=== PATIENT | female | born 1950 | race Caucasian/White ===

== ENCOUNTER 2019-07-29 06:12 | Day surgery (SDC) | payer MEDICARE, OTHER ==
[~2019-07-29] VITALS: Ht 165.1 cm; Wt 95.3 kg
[~2019-07-29 06:12] MED LIST: ACYC1CAP23 PO; CERT200K SC; DOXE25CA2 PO; DYA375C PO; ENAL5TAB PO; ESOM1CAP12 PO; FEXO-119 PO; FLUT250M2 INH; FURO20TA3 PO; HYDR-531 PO; LEUC10TA2 PO; LEVO175T31 PO; METO25TA93 PO; MORP15TA PO; MORP30TA PO; NAPR220T56 PO; SUCR1TAB PO; TIZA4TAB3 PO; TRIA55SP9; ZOLP10TA PO; [UNRECOGNIZED DRUG - CODE] PO
[2019-07-29] MEDS ORDERED: ceFAZolin 1GM/50ML 100 ML IV ONE (07:13)
[2019-07-29] MEDS ORDERED: LIDOCAINE W/ EPINEPHRINE 2% INJ 20ML VIAL ONE (07:27)
[2019-07-29] MEDS ORDERED: BUPIVACAINE W/ EPINEPH 0.25% INJ 50ML MDV ONE (07:27)
[2019-07-29] MEDS ORDERED: VANCOMYCIN HCL 1000 MG VL ONE (07:28)
[2019-07-29] MEDS ORDERED: MORPHINE SULF(PF) 0.5MG/ML 10ML VIAL ONE (07:29)
[2019-07-29] MEDS ORDERED: MEPERIDINE HCL (50 MG/ML) 1 ML VIAL ONE (07:36)
[2019-07-29] MEDS ORDERED: MIDAZOLAM HCL 1MG/1ML-2 ML VIAL ONE ×2 (07:36→07:53)
[2019-07-29] MEDS ORDERED: fentaNYL CITRATE 100 MCG/2 ML VL ONE (07:36)
[2019-07-29] MEDS ORDERED: DexAMETHasone SOD PHOS 10MG/1ML VIAL INJ ONE (07:39)
[2019-07-29] MEDS ORDERED: PROPOFOL 10 MG/ML 20 ML IV ONE (07:51)
[2019-07-29] MEDS ORDERED: ONDANSETRON HCL 4 MG/2 ML VIAL IV PRN (08:15)
[2019-07-29] MEDS ORDERED: MORPHINE SULFATE 4 MG/ML SYR/VIAL IV PRN (08:15)
[2019-07-29] MEDS ORDERED: ePHEDrine SULFATE 50 MG/ML AMP IV PRN (08:15)
[2019-07-29] MEDS ORDERED: ACCU-CHEK COMFORT CURVE STRIP VI ONE (08:15)
[2019-07-29] MEDS ORDERED: LABETALOL HCL 5 MG/ML 4ML SYRINGE IV PRN (08:15)
[2019-07-29] MEDS ORDERED: MIDAZOLAM HCL 1MG/1ML-2 ML VIAL IV PRN (08:15)
[2019-07-29] MEDS: HYDROmorphone HCL 2 MG/ML VL IV PRN ×2 (09:24→09:41)
[2019-07-29 10:06] VITALS: BP 127/55
== END 2019-07-29 10:19 | disposition home or self-care (01) ==
LOC: SUR 06:12
PROVIDERS: ATTEND Anesthesiology Pain Medicine
DX: M48.062 Spinal stenosis, lumbar region with neurogenic claudication (principal); I10 Essential (primary) hypertension; J44.9 Chronic obstructive pulmonary disease, unspecified; G47.33 Obstructive sleep apnea (adult) (pediatric); E03.9 Hypothyroidism, unspecified; E66.9 Obesity, unspecified; E11.9 Type 2 diabetes mellitus without complications; I25.10 Atherosclerotic heart disease of native coronary artery without angina pectoris; I25.2 Old myocardial infarction; Z79.01 Long term (current) use of anticoagulants; Z98.891 History of uterine scar from previous surgery; Z98.890 Other specified postprocedural states; Z79.82 Long term (current) use of aspirin; Z79.899 Other long term (current) drug therapy; Z68.35 Body mass index [BMI] 35.0-35.9, adult; Z87.891 Personal history of nicotine dependence
CPT/HCPCS: 22869; 22870; 72100; C1821; J0690; J1100; J1170; J2175; J2250; J2270; J2704; J3010; J3370; 76001

== ENCOUNTER 2020-01-01 13:55 | Emergency (ER) | payer MEDICARE, OTHER ==
[~2020-01-01] VITALS: Ht 165.1 cm; Wt 97.1 kg
[~2020-01-01 13:55] MED LIST changes: -ENAL5TAB PO; +ENAL5TAB10 PO
[2020-01-01 14:20] VITALS: BP 156/95
== END 2020-01-01 19:50 | disposition left against medical advice (07) ==
LOC: EDBD 13:55 → ER 13:55
DX: M79.602 Pain in left arm (principal); Z53.21 Procedure and treatment not carried out due to patient leaving prior to being seen by health care provider
CPT/HCPCS: 93005

== ENCOUNTER 2024-05-20 08:06 | Day surgery (SDC) | payer OTHER ==
[2024-05-19 15:28] LABS: Basophils # (auto) 0.1 10 ^3/uL (0-0.2); Basophils % (auto) 0.8 % (0.0-2.0); Eosinophils # (auto) 0.1 10 ^3/uL (0-0.8); Eosinophils % (auto) 1.8 % (0.0-7.0); Hematocrit 37.3 % (36.0-46.0); Hemoglobin 12.5 g/dL (12.2-16.2); Lymphocytes # (auto) 1.2 10 ^3/uL (0.4-5.4); Lymphocytes % (auto) 15.7 % (10.0-50.0); Mean Corpuscular Hgb Conc. 33.5 g/dL (32.0-36.0); Mean Corpuscular Volume 95.5 fL (80.0-100.0); Monocytes # (auto) 0.5 10 ^3/uL (0-1.3); Monocytes % (auto) 6.9 % (0.0-12.0); Neutrophils # (auto) 5.8 10 ^3/uL (1.6-8.6); Neutrophils % (auto) 74.8 % (37.0-80.0); Platelet Count (auto) 232 10^3/uL (140-450); Red Cell Distribution Width 16.2 % (11.8-14.3); White Blood Cell 7.8 10^3/uL (4.4-10.8)
[2024-05-19 15:44] LABS: INR 1.01 (0.9-1.15); Partial Thromboplastin Time 25.6 SEC (24.5-34.5); Prothrombin Time 10.7 sec (9.3-11.8)
[2024-05-19 16:06] LABS: Alanine Aminotransferase 12 U/L (7-40); Alkaline Phosphatase 95 U/L (46-116); Anion Gap 3 (5-15); Aspartate Aminotransferase 16 U/L (13-40); BUN/Creatinine Ratio 20.6 (10.0-20.0); Blood Urea Nitrogen 20 mg/dL (9-23); Calcium 10.7 mg/dL (8.7-10.4); Carbon Dioxide 36 mmol/L (20-31); Chloride 99 mmol/L (98-107); Glucose 121 mg/dL (74-106); Potassium 4.3 mmol/L (3.5-5.1); Sodium 138 mmol/L (136-145)
[2024-05-19 16:07] LABS: Albumin 4.1 g/dL (3.2-4.8); Bilirubin, Total 0.4 mg/dL (0.2-1.0); Total Protein 6.7 g/dL (5.7-8.2)
[~2024-05-20] VITALS: Ht 165.1 cm; Wt 94.3 kg
[~2024-05-20 08:06] MED LIST changes: -ACYC1CAP23 PO; +ACYC200C22 PO; +ALBUAER3 IN; -CERT200K SC; -DYA375C PO; -ENAL5TAB10 PO; +ENAL5TAB22 PO; +EPINEPHrine HCL 1 MG/10 ML SYRG ONE; -ESOM1CAP12 PO; +ESOM1CAP38 PO; +FLUT1AER17 IN; -FLUT250M2 INH; -LEVO175T31 PO; +LEVO175T4 PO; +LIDOCAINE 2% JELLY 11ml (GLYDO) ONE; +LIDOCAINE 2%HCL (LOCAL ANESTH.) INJ 20ML MDV ONE; +METH2.5T PO; -MORP30TA PO; -NAPR220T56 PO; +POTA-220 PO; +SODIUM CHLORIDE LOCK 10 ML ONE; -TIZA4TAB3 PO; -TRIA55SP9; -ZOLP10TA PO
[2024-05-20] MEDS: fentaNYL CITRATE 100 MCG/2 ML VL ONE (10:13)
[2024-05-20] MEDS: MIDAZOLAM HCL 5 MG/ML-1ML VIAL ONE (10:13)
[2024-05-20] MEDS: GLYCOPYRROLATE 0.2 MG/ML 1ML VIAL ONE (10:13)
[2024-05-20] MEDS: diphenhdrAMINE HCL 50 MG/1 ML VL ONE (10:13)
[2024-05-20] MEDS ORDERED: EPINEPHrine HCL 1 MG/1 ML AMP ONE (10:32)
[2024-05-20 11:00] VITALS: PULSE 115; RESP 26; TEMP 97.7; O2SAT 95
--- NOTE | 2024-05-20 11:09 | DVHNC2 ---
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 Glycopyrrolate 0.2 mg, Versed 5 mg, Fentanyl 100mcg, Benadryl 50 mg IVP. Complications: None Procedure: Patient medications and allergies reviewed. The risks and benefits of the procedure and the sedation options and risk were discussed with the patient. All questions were answered and informed consent was obtained. Patient iden tification and proposed procedure were verified prior to the procedure by the physician, and a nurse, and the respiratory therapist in endoscopy room. The heart rate, respiratory rate, oxygen saturations, blood pressure, adequacy of pulmonary ventilation, and response to care were monitored throughout the procedure. The physical status of the patient was reassessed after the proc edure. After obtaining informed consent, the bronchoscope was introduced through the endotracheal tube and advanced into the trachea bronchial tree of both lungs. The procedure was accomplished without difficulty. The patient tolerated the procedure well. Findings: The trachea is in normal caliber. The levy is sharp. The tracheobronchial tree of the right lung was examined to at least the first subsegmental level. The bronchial mucosa and anatomy in the right lung are normal, except in right middle lobe bronchus. There was abnormal mucosa with severe narrowing of the right middle lobe bronchus. There are no endobronchial lesions. There was no secretions from right main stem bronchus onward throughout R1-R10. Right middle lobe (RML) Bronchoalveolar lavage (BAL) obtained. RML BAL sent for gram stain and culture, viral culture, and fungal culture. Post biopsy, brushings and BAL, there was mucosal hemorrhage that resolved with 30 mL of cold saline. The left upper lobe, lingula, and left lower lobe were examined to at least the first subsegmental level. Bronchial mucosa and anatomy in the left upper lobe a nd lingula are normal. There were no endobronchial lesions. There was no secretions from left main stem bronchus onward throughout L1-L10. There was no active bleeding at the completion of the procedure. Estimated blood loss: Less than 5 mL. Impression: Right middle lobe mass like consoldation/atelectasis due to extrinsic compressio n Right Middle Lobe bronchoalveolar lavage performed Right middle lobe brushings Right middle lobe (RML) biopsy at bifurcation of RML bronchus Recommendation: Follow-up RML BAL, brushings, and biopsy results. Procedure codes: 59555, bronchoscopy, rigid and flexible, including fluoroscopic guidance, one performed; with bronchial endobronchial biopsy, single or multiple sites SHARIF LUND MD May 20, 2024 11:09
--- NOTE | 2024-05-20 11:12 | DVHNC2 ---
Procedure - I administered moderate sedation throughout the 28 minutes of the procedure. An independent observer administered medications at my direction and monitored the patient's level of consciousness and physiological status throughout the procedure. CPT 93697 for the first 15 minutes. CPT 59153 for each additional 15 minutes of conscious sedation. CONSCIOUS SEDATION PROCEDURE NOTE: Procedural Sedation Performed by: Dr Covington Indications: Bronchoscopy with biopsy due to Right middle lobe (RML) mass like consolidation. [place] Protocol: a time out was performed and the correct patient and site were verified Consent: The risks and benefits of monitored anesthesia care, including the risk of aspiration, deep sedation requiring airway management including possible intubation, nausea/vomiting and the risks of not performing the procedure, including severe pain and inability to complete the procedure, were all discussed with the patient. The alternatives of performing the procedure, including local anesthesia and IV analgesia, also discussed. The patient has a ride home available. ASA Class: II-mild systemic disease Mallampati Score: 3 Pre-anesthesia evaluation, including history, exam, and informed consent is documented in the note above. Monitoring: Continuous monitoring of heart rate, respiratory rate, pulse oximetry and ETCO2. Supplemental oxygen prior to and during procedure via nasal cannula. Resuscitation equipment available at the bedside during sedation. Intra-service start time: 10:13 am Intra-service stop time: 10:41 am The patient received Fentanyl 100 mcg, Versed 5 mg, Glycopyrrolate 0.2 mg IVP, and Benadryl 50mg IVP and dosages were recorded on the sedation form. The patient was recovered from the sedation without complication or incident. Patient returned to pre-sedation level of awareness. The monitoring was discontinued at this time. Post-anesthesia evaluation: Respiratory function, cardiovascular function, temperature, and mental status did return to pre-anesthetic state. Pain was controlled. The patient did tolerate p.o. SHARIF COVINGTON MD May 20, 2024 11:12
[2024-05-20 12:21] VITALS: PULSE 99; RESP 26; O2SAT 100
[2024-05-20] MEDS: ALBUTEROL SULF 2.5 MG/0.5ML(0.5%) NEB SOLN NEB ONE (12:21)
[2024-05-20] MEDS: ALBUTEROL SULF 2.5 MG/0.5ML(0.5%) NEB SOLN ONE (12:25)
--- NOTE | 2024-05-20 12:25 | DVH ---
CHEST RADIOGRAPH Indication: POST BRONCHOSCOPY Technique: Single frontal view of the chest was obtained COMPARISON: None FINDINGS: Lines and Tubes: None Lungs: Multifocal airspace disease. Low lung volumes. Pleura: No effusion. No pneumothorax. Cardiomediastinal contours: Cardiomegaly. Bones: Unremarkable IMPRESSION: Multifocal airspace disease. Low lung volumes. Cardiomegaly.
[2024-05-20 12:27] VITALS: PULSE 86; RESP 24; O2SAT 100
[2024-05-20] MEDS ORDERED: ACETAMINOPHEN IV 100 ML IV ONE (12:40)
[2024-05-20] MEDS: ACETAMINOPHEN IV 1000 MG/100ML (10MG/ML) IV ONE (12:44)
[2024-05-20] MEDS: FAMOTIDINE 20 MG TAB PO ONE (12:44)
[2024-05-20] MEDS: diphenhdrAMINE HCL 25 MG CAP PO ONE (12:44)
[2024-05-20] MEDS: guaiFENesin-DM 100/10mg/5ml SYR PO ONE (13:02)
[2024-05-20 13:20] VITALS: BP 123/88; PULSE 99; RESP 16; O2SAT 97
== END 2024-05-20 13:38 | disposition home or self-care (01) ==
LOC: SUR 08:06
PROVIDERS: ATTEND Internal Medicine Pulmonary Disease
DX: J98.11 Atelectasis (principal); J96.11 Chronic respiratory failure with hypoxia; J44.9 Chronic obstructive pulmonary disease, unspecified; K21.9 Gastro-esophageal reflux disease without esophagitis; J98.09 Other diseases of bronchus, not elsewhere classified; I13.0 Hypertensive heart and chronic kidney disease with heart failure and stage 1 through stage 4 chronic kidney disease, or unspecified chronic kidney disease; N18.2 Chronic kidney disease, stage 2 (mild); I50.9 Heart failure, unspecified; M19.90 Unspecified osteoarthritis, unspecified site; E03.9 Hypothyroidism, unspecified; Z79.890 Hormone replacement therapy; Z79.899 Other long term (current) drug therapy; Z87.891 Personal history of nicotine dependence; Z90.49 Acquired absence of other specified parts of digestive tract; Z98.890 Other specified postprocedural states
CPT/HCPCS: 31625; 36415; 71045; 80053; 85025; 85610; 85730; 87070; 87205; 88104; 88305; J0171; J1200; J2250; J3010; 99152; 99153; J0131

== ENCOUNTER 2024-05-22 16:52 | Inpatient (IN) | payer OTHER ==
[~2024-05-22] VITALS: Ht 154.9 cm; Wt 93.8 kg
[~2024-05-22 16:52] MED LIST changes: -EPINEPHrine HCL 1 MG/10 ML SYRG ONE; -LIDOCAINE 2% JELLY 11ml (GLYDO) ONE; -LIDOCAINE 2%HCL (LOCAL ANESTH.) INJ 20ML MDV ONE; -SODIUM CHLORIDE LOCK 10 ML ONE
[2024-05-22 17:41] LABS: Urine Bacteria None Seen /hpf (None Seen)
--- NOTE | 2024-05-22 17:51 | ED.PDOC ---
HPI Comments 74y F who presents to the ED for chief complaint of chest pain. Pt states she has been having palpitations since last night PM. Pt states she has history of CHF and COPD and states she took her breathing treatment last night and states she was checking her vitals and states her heart was elevated. Pt states earlier this AM, she continued to have palpitations this AM with heart rate in the 150's and came to the ED for further evaluation. Pt in the ED, has noted heart rate of 171 with BP of 156/90 in the ED. Pt otherwise denies any other symptoms at this time. Chief Complaint: Palpitations Time Seen by MD: 17:45 Primary Care Provider: TYLER Reviewed Notes: Medications, Allergies Allergies: Coded Allergies: NO KNOWN ALLERGIES (Unverified , 07/27/19) Home Meds Reported Medications Bfjfxenhuzj-Sasyrpamjlrf-Ssffk (Trelegy Ellipta 200-62.5-25 Mcg/INH) 1 Aer Aer, 1 AER IN, AER 05/19/24 Potassium Chloride (Klor-Con M20) 20 Meq Tab, 20 MEQ PO BID, TAB 05/19/24 Albuterol Sulfate (VENTOLIN MDI) 90 Mcg Ih, 90 MCG IN PRN, INH 05/19/24 Methotrexate (Methotrexate) 2.5 Mg Tab, 4 TAB PO QWEEKLY, TAB 05/19/24 Metoprolol Succinate (Metoprolol Succinate Er) 25 Mg Tab, 25 MG PO DAILY for 30 Days, MG 07/27/19 Hydrocodone-Acetaminophen ([place] 10-325 mg) 1 Tab Tab, 1 TAB PO Q8HPRN PRN for PAIN SCALE 7 THRU 10, TAB 04/12/19 Morphine Sulfate (Morphine Sulfate) 15 Mg Tab, 15 MG PO BID, TAB 04/12/19 Doxepin Hcl (Doxepin Hcl) 25 Mg Cap, 100 MG PO HS, CAP 04/12/19 Enalapril Maleate (Enalapril Maleate) 5 Mg Tab, 5 MG PO BID, TAB 04/12/19 Leucovorin Calcium (Leucovorin Calcium) 10 Mg Tab, 10 MG PO QWEEKLY, TAB 04/12/19 Levothyroxine Sodium (Levothyroxine Sodium) 175 Mcg Tab, 175 MCG PO DAILY, TAB 04/12/19 Esomeprazole Magnesium (Esomeprazole Magnesium) 40 Mg Cap, 40 MG PO DAILY, CAP 04/12/19 Furosemide (Furosemide) 20 Mg Tab, 1-2 TAB PO DAILYPRN for SWELLING, TAB 04/12/19 Fexofenadine HCl (Allergy Relief 24Hr) 180 Mg Tab, 180 MG PO DAILY, TAB 04/12/19 Sucralfate (Sucralfate) 1 Gm Tab, 1 GM PO QID, GM 04/12/19 Theophylline (Theophylline Sr) 300 Mg Tab, 300 MG PO BID, TAB 04/12/19 Acyclovir (Acyclovir) 200 Mg Cap, 400 MG PO BID, TAB 04/12/19 Discontinued Reported Medications Triamcinolone Acetonide (Nasal (Nasal Allergy 24 Hour Mul) 55 Mcg/Act Spr, 55 MCG NA DAILY, SPR 04/12/19 Zolpidem Tartrate (Ambien) 10 Mg Tab, 10 MG PO HS, TAB 04/12/19 Hydrochlorothiazide W/Triamter (Dyazide 37.5/25MG) 1 Cap Cp, 1 CAP PO DAILY, #90 CAP 3 Refills 04/12/19 Tizanidine Hydrochloride (Tizanidine Hcl) 4 Mg Tab, 4 MG PO HS, TAB 04/12/19 Information Source: Patient Mode of Arrival: Wheelchair Brought in by: self Past Medical History PAST MEDICAL HISTORY: CHF Surgical History: Unknown 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 Family History Family History: Unknown Social History Smoker: Non-Smoker Alcohol: Denies ETOH Use Drugs: Denies Drug Use Lives In: Home Constitutional: denies: chills, diaphoresis, fatigue, fever, malaise, sweats, weakness, others EENTM: denies: blurred vision, double vision, ear bleeding, ear discharge, ear drainage, ear pain, ear ringing, eye pain, eye redness, hearing loss, mouth pain, mouth swelling, nasal discharge, nose bleeding, nose congestion, nose pain, photophobia, tearing, throat pain, throat swelling, voice changes, others Respiratory: denies: cough, hemoptysis, orthopnea, SOB at rest, shortness of breath, SOB with excertion, stridor, wheezing, others Cardiovascular: reports: chest pain, palpitations; denies: dizzy spells, di aphoresis, Dyspnea on exertion, edema, irregular heart beat, left arm pain, lightheadedness, PND, syncope, others Gastrointestinal: denies: abdomen distended, abdominal pain, blood streaked bowels, constipated, diarrhea, dysphagia, difficulty swallowing, hematemesis, melena, nausea, poor appetite, poor fluid intake, rectal bleeding, rectal pain, vomiting, others Genitourinary: denies: abnormal vagina bleeding, burning, dyspareunia, dysuria, flank pain, frequency, hematuria, incontinence, pain, , vagina discharge, urgency, others Neurological: denies: dizziness, fainting, headache, left sided numbness, left sided weakness, numbness, paresthesia, pre-existing deficit, right sided numbnes s, right sided weakness, seizure, speech problems, tingling, tremors, weakness, others Musculoskeletal: denies: back pain, gout, joint pain, joint swelling, muscle pain, muscle stiffness, neck pain, others Integumetry: denies: bruises, change in color, change in hair/nails, dryness, laceration, lesions, lumps, rash, wounds, others Allergic/Immunocompromised: denies: Difficulty Healing, Frequent Infections, Hives, Itching, others Hematologic/Lymphatic: denies: anemia, blood clots, easy bleeding, easy bruising, swollen glands, others Endocrine: denies: excessive hunger, excessive sweating, excessive thirst, excessive urination, flushing, intolerance to cold, intolerance to heat, unexplained weight gain, unexplained weight loss, others Psychiatric: denies: anxiety, bipolar disorder, depression, hopeless, panic disorder, schizophrenia, sleepless, suicidal, others All Other Systems: Reviewed and Negative Physical Exam General Appearance: No Apparent Distress, Normal HEENT: Normal ENT Inspection, Pharynx Normal, TMs Normal Neck: Full Range of Motion, Non-Tender, Normal, Normal Inspection Respiratory: Chest Non-Tender, Lungs Clear, No Accessory Muscle Use, No Respiratory Distress, Normal Breath Sounds Cardiovascular: Tachycardia Breast Exam: Deferred Gastrointestinal: No Organomegaly, Non Tender, No Pulsatile Mass, Normal Bowel Sounds, Soft Genitalia: Deferred Pelvic: Deferred Rectal: Deferred Extremities: No calf tenderness, Normal capillary refill, Normal inspection, Normal range of motion, Non-tender, No pedal edema Musculoskeletal : Apperance: Normal Neurologic: Alert, supervisor slate splitting II-XII nml as Tested, No Motor Deficits, Normal Affect, Normal Mood, No Sensory Deficits Cerebellar Function: Normal Reflexes: Normal Skin: Dry, Normal Color, Warm Lymphatic: No Adenopathy Was a procedure done? Was a procedure done?: Yes Sedation Sedation?: Yes Informed consent obtained: Yes Sedation start time: 17:30 Sedation end time: 18:15 Sedation total time: 45 Cardioversion Vagal maneuver: Were not attempted Attempts: x1, Joules (120) Resulted Rhythm: NSR Direct Supervision: Yes Informed consent obtained: Yes Risks/benefits/alt described: Yes CP Differential Dx Differential Diagnosis: A-fib, A-Flutter, Angina, Anxiety / Panic Attack, Atrial Dysrhythmia, Electrolyte Disorder, Heart Failure, PSVT, PVC's, Vent ricular Dysrhythmia Differential Diagnosis: HTN Essential, HTN Accelerated X-Ray, Labs, Meds, VS Vital Signs Date Time Temp Pulse Resp B/P (MAP) Pulse Ox O2 Delivery O2 Flow Rate FiO2 05/22/24 20:00 123 33 124/79 (94) 91 05/22/24 19:45 120 42 126/85 (99) 91 05/22/24 19:30 110 32 108/62 (77) 91 05/22/24 19:15 167 32 98/55 (69) 99 05/22/24 19:00 167 32 93/59 (70) 99 05/22/24 19:00 124/79 05/22/24 19:00 124/79 05/22/24 18:45 168 32 129/67 (87) 99 05/22/24 18:37 169 125/51 05/22/24 18:30 165 32 128/60 (82) 99 05/22/24 18:15 165 32 128/66 (86) 99 05/22/24 18:00 168 23 97 Nasal Cannula* 2 28 05/22/24 18:00 99.6 165 22 125/51 (75) 98 99.6 05/22/24 17:47 168 05/22/24 17:25 171 32 156/90 (112) 92 05/22/24 17:04 98.4 172 37 159/60 (93) 92 05/22/24 16:58 175 Lab Test 05/22/24 20:20 05/22/24 17:24 05/22/24 17:21 Range/Units Troponin I High Sensitivity 62 *H 75 *H </=34 ng/L White Blood Count 11.5 #H 4.4-10.8 10^3/uL Red Blood Count 4.03 4.0-5.20 10^6/uL Hemoglobin 12.8 12.2-16.2 g/dL Hematocrit 38.6 36.0-46.0 % Mean Corpuscular Volume 95.8 80.0-100.0 fL Mean Corpuscular Hemoglobin 31.8 28.0-32.0 pg Mean Corpuscular Hemoglobin Concent 33.2 32.0-36.0 g/dL Red Cell Distribution Width 16.4 H 11.8-14.3 % Platelet Count 287 140-450 10^3/uL Mean Platelet Volume 9.6 6.9-10.8 fL Neutrophils (%) (Auto) 80.3 H 37.0-80.0 % Lymphocytes (%) (Auto) 9.7 L 10.0-50.0 % Monocytes (%) (Auto) 8.8 0.0-12.0 % Eosinophils (%) (Auto) 0.3 0.0-7.0 % Basophils (%) (Auto) 0.9 0.0-2.0 % Neutrophils # (Auto) 9.2 H 1.6-8.6 10 ^3/uL Lymphocytes # (Auto) 1.1 0.4-5.4 10 ^3/uL Monocytes # (Auto) 1.0 0-1.3 10 ^3/uL Eosinophils # (Auto) 0 0-0.8 10 ^3/uL Basophils # (Auto) 0.1 0-0.2 10 ^3/uL Nucleated Red Blood Cells 0.0 % Sodium Level 135 L 136-145 mmol/L Potassium Level 3.7 3.5-5.1 mmol/L Chloride Level 100 98-107 mmol/L Carbon Dioxide Level 25 20-31 mmol/L Anion Gap 10 5-15 Blood Urea Nitrogen 15 9-23 mg/dL Creatinine 0.84 0.550-1.02 mg/dL Glomerular Filtration Rate Calc 73 >90 mL/min BUN/Creatinine Ratio 17.9 10.0-20.0 Serum Glucose 118 H 74-106 mg/dL Calcium Level 10.9 H 8.7-10.4 mg/dL Magnesium Level 1.9 1.6-2.6 mg/dL Total Bilirubin 0.5 0.2-1.0 mg/dL Aspartate Amino Transferase (AST) 22 13-40 U/L Alanine Aminotransferase (ALT) 14 7-40 U/L Alkaline Phosphatase 99 46-116 U/L Total Protein 7.1 5.7-8.2 g/dL Albumin 4.3 3.2-4.8 g/dL Urine Color Colorless Yellow Urine Clarity Clear Clear Urine pH 5.5 5.0-9.0 Urine Specific [place] 1.007 1.001-1.035 Urine Protein Negative Negative Urine Ketones Negative Negative Urine Blood Negative Negative /uL Urine Nitrite Negative Negative Urine Bilirubin Negative Negative Urine Urobilinogen Normal Negative mg/dL Urine Leukocyte Esterase 1+ Negative /uL Urine RBC <1 0 - 4 /hpf Urine WBC 6 0 - 5 /hpf Urine Squamous Epithelial Cells Few <5 /hpf Urine Bacteria None seen None Seen /hpf Urine Glucose Normal Normal mg/dL Current Medications Medications (Trade) Dose Ordered Sig/Vashti Route Start Time Stop Time Status Last Admin Metoprolol Tartrate (Lopressor) 5 mg ONCE ONCE IV 05/22/24 18:45 05/22/24 18:46 DC 05/22/24 18:37 Ondansetron HCl (Zofran) 4 mg ONCE ONCE IV 05/22/24 18:45 05/22/24 18:46 DC 05/22/24 18:38 Furosemide (Lasix Injection) 40 mg ONCE ONCE IV 05/22/24 19:00 05/22/24 19:11 DC 05/22/24 19:00 Adenosine (Adenosine) 6 mg ONCE ONCE IV 05/22/24 19:30 05/22/24 19:31 DC 05/22/24 18:56 Adenosine (Adenosine) 12 mg ONCE ONCE IV 05/22/24 19:30 05/22/24 19:31 DC 05/22/24 18:58 Ketamine HCl (Ketalar) 200 mg ONCE ONCE IV 05/22/24 19:30 05/22/24 19:31 DC 05/22/24 19:[address] [address] Ph: [phone] DIAGNOSTIC IMAGING Diagnostic Imaging Report : [id number] Signed PATIENT: BEN ASHBY ACCT: [id number] UNIT: [id number] : 1950 LOC: ER ROOM / BED: / AGE / SEX: 74 / F ADM STATUS: REG ER SERVICE 06 ORDERING PHYSICIAN: MARCELA CAPELLAN MD PROCEDURE(s): CXRP - CHEST PORTABLE REASON: palpitations ORDER NUMBER(s): [id number], ACCESSION NUMBER(s): [id number] CHEST RADIOGRAPH Indication: palpitations Technique: Single frontal view of the chest was obtained COMPARISON: XY CHEST XRAY 1 VIEW on DOS: 05/20/24 FINDINGS: Lines and Tubes: None Lungs: Mild interstitial pulmonary edema Pleura: Trace bilateral pleural effusions. No pneumothorax. Cardiomediastinal contours: Cardiomegaly Bones: Unremarkable IMPRESSION: 1. Mild interstitial pulmonary edema in the setting of cardiomegaly. 2. Trace bilateral pleural effusions. ATED BY: KWAME SCHUMACHER MD DICTATED DATE/TIME: 05/22/241751 SIGNED BY: KWAME SCHUMACHER MD SIGNED DATE/TIME: 05/22/241751 CC: Time of 1ST Reevaluation: 18:15 Reevaluation 1ST: Unchanged Patient Education/Counseling: Diagnosis, Treatment Family Education/Counseling: No Family Present Departure 1 Departure Time of Disposition: 20:59 (Patient presented with chest pain that was concerning for possible STEMI, ACS, PE, Pneumonia, Muscle Strain, COPD, Dissection. Data: 1. I ordered and reviewed the result of at least 3 labs including a CBC, BMP, and Troponin. 2. I independently interpreted the following tests: EKG which shows SVT and Chest X-ray which shows vascular congestion .Risk:This patient has a high risk of morbidity due to further diagnostic testing or treatment and may suffer from an acute cardiac or respiratory disorder. Workup reveals CHF exacerbation and patient should be admitted for further workup and possible expert consultation. ) Impression: Primary Impression: Acute on chronic heart failure with reduced ejection fraction (HFrEF, <= 40%) and combined systolic and diastolic dysfunction Additional Impression: SVT (supraventricular tachycardia) Disposition: ADMITTED INPATIENT Admit to: Med Surg Condition: Serious Critical Care Note Critical Care Time?: Yes Critical care comment: SVT Authorized and Performed by: Marcela Capellan MD Total critical care time: Approximately 38 minutes Due to a high probability of clinically significant, life threatening deterioration, the patient required my highest level of preparedness to intervene emergently and I personally spent this critical care time directly and personally managing the patient. This critical care time included obtaining a history; examining the patient; pulse oximetry; ordering and review of studies; arranging urgent treatment with development of a management plan; evaluation of patient's response to treatment; frequent reassessment; and, discussions with other providers. This critical care time was performed to assess and manage the high probability of imminent, life-threatening deterioration that could result in multi-organ failure. It was exclusive of separately billable procedures and treating other patients and teaching time. Please see my other sections and the rest of the note for further information on patient assessment and treatment. Stability Stability form required: No Heart Score Heart Score: Heart Score Response (Comments) Value History Moderate Suspicious 1 EKG N/A 0 Age >65 2 Risk Factors 1 or 2 risk factors 1 Troponin N/A 0 Total 4 I personally scribed for MARCELA CAPELLAN MD ([email or web address]) on 05/22/24 at 17:51. Electronically submitted by Geovani Tan ([facility]). I personally scribed for MARCELA CAPELLAN MD ([email or web address]) on 05/22/24 at 18:38. Electronically submitted by Geovani Tan ([facility]). MARCELA CAPELLAN MD May 22, 2024 17:51
--- NOTE | 2024-05-22 17:54 | DVH ---
CHEST RADIOGRAPH Indication: palpitations Technique: Single frontal view of the chest was obtained COMPARISON: XY CHEST XRAY 1 VIEW on DOS: 05/20/24 FINDINGS: Lines and Tubes: None Lungs: Mild interstitial pulmonary edema Pleura: Trace bilateral pleural effusions. No pneumothorax. Cardiomediastinal contours: Cardiomegaly Bones: Unremarkable IMPRESSION: 1. Mild interstitial pulmonary edema in the setting of cardiomegaly. 2. Trace bilateral pleural effusions.
[2024-05-22 17:57] LABS: Alanine Aminotransferase 14 U/L (7-40); Albumin 4.3 g/dL (3.2-4.8); Alkaline Phosphatase 99 U/L (46-116); Anion Gap 10 (5-15); Aspartate Aminotransferase 22 U/L (13-40); BUN/Creatinine Ratio 17.9 (10.0-20.0); Blood Urea Nitrogen 15 mg/dL (9-23); Calcium 10.9 mg/dL (8.7-10.4); Carbon Dioxide 25 mmol/L (20-31); Chloride 100 mmol/L (98-107); Glucose 118 mg/dL (74-106); Magnesium 1.9 mg/dL (1.6-2.6); Potassium 3.7 mmol/L (3.5-5.1); Sodium 135 mmol/L (136-145)
[2024-05-22 17:58] LABS: Bilirubin, Total 0.5 mg/dL (0.2-1.0); Total Protein 7.1 g/dL (5.7-8.2)
[2024-05-22 18:00] VITALS: PULSE 168; RESP 23; O2SAT 97
[2024-05-22 18:06] LABS: Urine Blood Negative /uL (Negative); Urine Clarity Clear (Clear); Urine Color Colorless (Yellow); Urine Protein, UAD Negative (Negative); Urine Specific Gravity 1.007 (1.001-1.035); Urine Urobilinogen Normal (Negative); Urine WBC 6 /hpf (0 - 5); Urine pH 5.5 (5.0-9.0)
[2024-05-22 18:09] LABS: Basophils # (auto) 0.1 10 ^3/uL (0-0.2); Basophils % (auto) 0.9 % (0.0-2.0); Eosinophils # (auto) 0 10 ^3/uL (0-0.8); Eosinophils % (auto) 0.3 % (0.0-7.0); Hematocrit 38.6 % (36.0-46.0); Hemoglobin 12.8 g/dL (12.2-16.2); Lymphocytes # (auto) 1.1 10 ^3/uL (0.4-5.4); Lymphocytes % (auto) 9.7 % (10.0-50.0); Mean Corpuscular Hemoglobin 31.8 pg (28.0-32.0); Mean Corpuscular Hgb Conc. 33.2 g/dL (32.0-36.0); Mean Corpuscular Volume 95.8 fL (80.0-100.0); Monocytes % (auto) 8.8 % (0.0-12.0); Neutrophils # (auto) 9.2 10 ^3/uL (1.6-8.6); Neutrophils % (auto) 80.3 % (37.0-80.0); Platelet Count (auto) 287 10^3/uL (140-450); Red Blood Cells 4.03 10^6/uL (4.0-5.20); Red Cell Distribution Width 16.4 % (11.8-14.3); White Blood Cell 11.5 10^3/uL (4.4-10.8)
[2024-05-22] MEDS: METOPROLOL TARTRATE 1MG/1ML-5ML VIAL IV ONE ×2 (18:37→18:38)
[2024-05-22] MEDS: ONDANSETRON HCL 4 MG/2 ML VIAL IV ONE (18:38)
--- NOTE | 2024-05-22 18:41 | ECG ---
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
[2024-05-22] MEDS: ADENOSINE 6 MG/2 ML INJ IV ONE ×4 (18:56→19:21)
[2024-05-22] MEDS: FUROSEMIDE 40 MG/4 ML VIAL ONE (19:00)
[2024-05-22] MEDS: FUROSEMIDE 40 MG/4 ML VIAL IV ONE (19:00)
[2024-05-22] MEDS: KETAMINE 50mg/ML 10ml Vial (500mg/10ml) IV ONE (19:09)
[2024-05-22] MEDS: KETAMINE 50mg/ML 10ml Vial 10 ML ONE (19:21)
[2024-05-22] MEDS: AMIODARONE BOLUS KIT 100 ML IV ONE (20:15)
[2024-05-22] MEDS: AMIODARONE 450mg/250ml AE 250 ML IV SCH ×2 (20:30→21:03)
[2024-05-22] MEDS ORDERED: ACETAMINOPHEN 325 MG TAB PO PRN (22:15)
[2024-05-22] MEDS: ASPirin 81 mg TAB PO ONE (23:15)
[2024-05-22] MEDS: cefTRIAXone 1GM/50ML D5W 50 ML IV ONE (23:15)
--- NOTE | 2024-05-22 23:40 | DVHHP2 ---
History of Present Illness Reason for Visit: Palpitations History of Present Illness The patient is a 74-year-old female with past medical history of CHF, thyroid disease, and hypertension who presented to [facility] ED with complaint of chest pain. Patient reports symptoms progressively get worse with palpitations, difficulty breathing, getting worse that prompted this visit. Patient was seen and evaluated in the ED, laboratory data shows WBC 11.5, platelets 287, sodium 135, potassium 3.7, BUN 15, creatinine 0.84, glucose 118, troponin 75, calcium 10.9, BNP 423.72, blood pressure 131/78, heart rate 175 trending down to 104, temperature 99.6 F, O2 saturation 99% on oxygen. Chest x- ray revealing mild interstitial pulmonary edema trace bilateral pleural effusions. Patient was started on adenosine drip, given IV Lasix, please see medication orders section in the computer. On my assessment, patient denied chest pain, no headache, no dizziness, no diaphoresis, no palpitations at this moment, currently on oxygen, no nausea, no vomiting, no fever, no chills. Olga Lidia ent was admitted for further evaluation and medical management. Past Medical History CHF, HTN, thyroid disease. Past Surgical History Denies all surgeries Family History Reviewed, noncontributory to the management of this case. Past Social History The patient lives at home, denies smoking, alcohol or illicit drugs abuse. Review of Systems Constitutional: Yes: Weakness; No: Fever, Chills, Sweats, Malaise, Other Eyes: No: Pain, Vision change, Conjunctivae inflammation, Eyelid inflammation, Other, Redness ENT: No: Ear pain, Ear discharge, Nose pain, Nose discharge, Nose congestion, Mouth pain, Mouth swelling, Throat pain, Throat swelling, Other Respiratory: No: Cough, Dry, Shortness of breath, SOB with excertion, Wheezing, Hemoptysis, Pleuritic Pain, Sputum, Wheezing, Other Cardiovascular: Palpitations; No: Chest Pain, Orthopnea, Paroxysmal Noc. Dyspnea, Edema, Lt Headedness, Other Gastrointestinal: No: Nausea, Vomiting, Abdominal Pain, Diarrhea, Constipation, Melena, Hematochezia, Other Genitourinary: No Dysuria, No Frequency, No Incontinence, No Hematuria, No Retention, No Other Musculoskeletal: No: other, neck pain, shoulder pain, arm pain, back pain, hand pain, leg pain, foot pain Skin: No: Rash, Lesions, Jaundice, Bruising, Other Neurological: No: Weakness, Numbness, Incoordination, Change in speech, Confusion, Seizures, Other Allergies: Coded Allergies: NO KNOWN ALLERGIES (Unverified , 07/27/19) Medications Current Medications Medications Dose Ordered Sig/Vashti Route Start Time Stop Time Status Last Admin Dose Admin Amiodarone HCl 250 ml @ 33.333 mls/ hr Q7H30M IV 05/22/24 20:30 05/23/24 02:29 Amiodarone HCl 250 ml @ 16.667 mls/ hr Q15H IV 05/23/24 02:30 Aspirin 81 mg DAILY PO 05/23/24 10:00 Famotidine 20 mg DAILY IV 05/23/24 10:00 Furosemide 20 mg DAILY IV 05/23/24 10:00 Metoprolol Tartrate 25 mg BID PO 05/23/24 10:00 Levothyroxine Sodium 150 mcg QAM@0600 PO 05/23/24 06:00 Ceftriaxone Sodium 50 ml @ 100 mls/hr DAILY@09 IV 05/23/24 09:00 Sodium Chloride 10 ml Q8HR IV 05/23/24 06:00 Acetaminophen/ Hydrocodone Bitart 1 tab Q4HP PRN PO 05/22/24 22:15 Ondansetron HCl 4 mg Q4HP PRN IV 05/22/24 22:15 Docusate Sodium 100 mg BIDPRN PRN PO 05/22/24 22:15 Acetaminophen 650 mg Q6HP PRN PO 05/22/24 22:15 Exam Vital Signs Vital Signs Date Time Temp Pulse Resp B/P (MAP) Pulse Ox O2 Delivery O2 Flow Rate FiO2 05/22/24 21:05 118 26 112/56 (74) 100 05/22/24 18:00 Nasal Cannula* 2 28 05/22/24 18:00 99.6 99.6 General Appearance: Alert, Oriented X3, Cooperative, No acute distress HEENT: Atraumatic, PERRLA, EOMI, Mucous membr. moist/pink Respiratory: Clear to auscultation, Normal air movement Cardiovascular: Regular rate, Normal S1, Normal S2, No murmurs Abdominal: Normal bowel sounds, Soft, No tenderness, No hepatospenomegaly, No masses Extremities: No clubbing, No cyanosis, No edema, Normal pulses, No tenderness/swelling Skin: No rashes, No breakdown, No significant lesion Neuro: Normal speech, Normal tone, Sensation intact, Cranial nerves 3-12 NL, Reflexes 2+, Other (Generalized weakness) Psych/Mental Status: Mental status NL, Mood NL Labs/Xrays Labs Test 05/22/24 22:24 05/22/24 17:24 05/22/24 17:21 Range/Units Troponin I High Sensitivity 72 *H </=34 ng/L White Blood Count 11.5 #H 4.4-10.8 10^3/uL Red Blood Count 4.03 4.0-5.20 10^6/uL Hemoglobin 12.8 12.2-16.2 g/dL Hematocrit 38.6 36.0-46.0 % Mean Corpuscular Volume 95.8 80.0-100.0 fL Mean Corpuscular Hemoglobin 31.8 28.0-32.0 pg Mean Corpuscular Hemoglobin Concent 33.2 32.0-36.0 g/dL Red Cell Distribution Width 16.4 H 11.8-14.3 % Platelet Count 287 140-450 10^3/uL Mean Platelet Volume 9.6 6.9-10.8 fL Neutrophils (%) (Auto) 80.3 H 37.0-80.0 % Lymphocytes (%) (Auto) 9.7 L 10.0-50.0 % Monocytes (%) (Auto) 8.8 0.0-12.0 % Eosinophils (%) (Auto) 0.3 0.0-7.0 % Basophils (%) (Auto) 0.9 0.0-2.0 % Neutrophils # (Auto) 9.2 H 1.6-8.6 10 ^3/uL Lymphocytes # (Auto) 1.1 0.4-5.4 10 ^3/uL Monocytes # (Auto) 1.0 0-1.3 10 ^3/uL Eosinophils # (Auto) 0 0-0.8 10 ^3/uL Basophils # (Auto) 0.1 0-0.2 10 ^3/uL Nucleated Red Blood Cells 0.0 % Sodium Level 135 L 136-145 mmol/L Potassium Level 3.7 3.5-5.1 mmol/L Chloride Level 100 98-107 mmol/L Carbon Dioxide Level 25 20-31 mmol/L Anion Gap 10 5-15 Blood Urea Nitrogen 15 9-23 mg/dL Creatinine 0.84 0.550-1.02 mg/dL Glomerular Filtration Rate Calc 73 >90 mL/min BUN/Creatinine Ratio 17.9 10.0-20.0 Serum Glucose 118 H 74-106 mg/dL Calcium Level 10.9 H 8.7-10.4 mg/dL Magnesium Level 1.9 1.6-2.6 mg/dL Total Bilirubin 0.5 0.2-1.0 mg/dL Aspartate Amino Transferase (AST) 22 13-40 U/L Alanine Aminotransferase (ALT) 14 7-40 U/L Alkaline Phosphatase 99 46-116 U/L B-Type Natriuretic Peptide 423.72 0-100 pg/mL Total Protein 7.1 5.7-8.2 g/dL Albumin 4.3 3.2-4.8 g/dL Thyroid Stimulating Hormone (TSH) 0.74 0.55-4.78 uIU/mL Urine Color Colorless Yellow Urine Clarity Clear Clear Urine pH 5.5 5.0-9.0 Urine Specific [place] 1.007 1.001-1.035 Urine Protein Negative Negative Urine Ketones Negative Negative Urine Blood Negative Negative /uL Urine Nitrite Negative Negative Urine Bilirubin Negative Negative Urine Urobilinogen Normal Negative mg/dL Urine Leukocyte Esterase 1+ Negative /uL Urine RBC <1 0 - 4 /hpf Urine WBC 6 0 - 5 /hpf Urine Squamous Epithelial Cells Few <5 /hpf Urine Bacteria None seen None Seen /hpf Urine Glucose Normal Normal mg/dL PATIENT: BEN ASHBY ACCT: [id number] UNIT: [id number] : 1950 LOC: ER ROOM / BED: / AGE / SEX: 74 / F ADM STATUS: REG ER SERVICE [id number] ORDERING PHYSICIAN: MARCELA ERICKSON MD PROCEDURE(s): CXRP - CHEST PORTABLE REASON: palpitations ORDER NUMBER(s): [id number], ACCESSION NUMBER(s): [id number] CHEST RADIOGRAPH Indication: palpitations Technique: Single frontal view of the chest was obtained COMPARISON: XY CHEST XRAY 1 VIEW on DOS: 05/20/24 FINDINGS: Lines and Tubes: None Lungs: Mild interstitial pulmonary edema Pleura: Trace bilateral pleural effusions. No pneumothorax. Cardiomediastinal contours: Cardiomegaly Bones: Unremarkable IMPRESSION: 1. Mild interstitial pulmonary edema in the setting of cardiomegaly. 2. Trace bilateral pleural effusions. Assessment/Plan Assessment/Plan SVT (supraventricular tachycardia) Urinary tract infection Elevated troponin Pulmonary edema Acute exacerbation of congestive heart failure Plan 1. Admit to telemetry unit 2. Breathing treatment 3. Pain control management 4. IV antibiotic management 5. Management of fluids and electrolytes 6. Consultation for Cardiology 7. Diagnostic test chest x-ray 8. DVT prophylaxis-on aspirin 9. Repeat labs CBC, CMP in a.m. 10. Home medication reviewed and reconciled 11. Continue with current medical management 12. Treatment plan discussed with patient and RN. Patient verbalized understanding. Plan discussed with: Patient, Other (RN) My Orders Orders - JOSSELYN BERKOWITZ DNP Procedure Category Date Status Time Aspirin Tablet PHA 05/23/24 In Process 10:00 Famotidine Injection PHA 05/23/24 In Process (Pepcid Injection) 10:00 Furosemide Injection PHA 05/23/24 In Process (Lasix Injection) 10:00 Metoprolol Tartrate PHA 05/23/24 In Process Tablet (Lopressor Ta 10:00 Levothyroxine Tablet PHA 05/23/24 In Process (Synthroid Tablet) 06:00 * Cardiology Consult CONS 05/22/24 Transmitted 22:04 Ceftriaxone 1gm/50ml PHA 05/23/24 In Process D5w (Rocephin) 09:00 Urine Bacterial BLAZE 05/22/24 In Process Culture 22:04 Troponin-I Hs LAB 05/23/24 Verified 04:00 Allergies VANGIE 05/22/24 In Process 22:04 Code Status CODE 05/22/24 Transmitted 22:04 Sodium Chloride Lock PHA 05/23/24 In Process (Saline Lock Ns) 06:00 Oxygen Per Hour RT 05/22/24 Transmitted 22:04 Hydrocodone-Acet PHA 05/22/24 In Process 5/325mg Tab (Harmony 22:15 Ondansetron Hcl PHA 05/22/24 In Process (Zofran) 22:15 Docusate Sodium PHA 05/22/24 In Process Capsule (Colace 22:15 Fall Risk Precautions VANGIE 05/22/[address] 22:04 Complete Blood Count LAB 05/23/24 Verified 04:00 Comprehensive LAB 05/23/24 Verified Metabolic Panel 04:00 Cardiac DIET 05/23/24 Transmitted Diet-2gna,Lofat,Lochol Breakfast Echo 2d Mode Cardiac US 05/22/24 Logged DOP 22:04 Condition: Serious VANGIE 05/22/24 In Process 22:04 Acetaminophen Tablet PHA 05/22/24 In Process (Tylenol Tablet) 22:15 Sequential VANGIE 05/22/24 In Process Compression Device Problem List: (1) SVT (supraventricular tachycardia) (2) Elevated troponin (3) Urinary tract infection (4) Pulmonary edema (5) Acute exacerbation of congestive heart failure Date of Service: May 22, 2024 Billing Provider: JOSSELYN BERKOWITZ DNP Common Visit Codes: [id number] INP/OBS CARE (HIGH) JOSSELYN BERKOWITZ DNP May 22, 2024 23:40
[2024-05-22] MEDS ORDERED: MORPHINE SULFATE INJ 2 MG/ml SYRG IV PRN (23:45)
[2024-05-22] MEDS ORDERED: NITROGLYCERIN 0.4 MG SL TAB SL PRN (23:45)
[2024-05-23] VITALS (12 sets, daily range): BP systolic 103–146; BP diastolic 55–78; PULSE 89–116; RESP 17–22; TEMP 97.2–99; O2SAT 91–99
[2024-05-23] MEDS: HYDROcodone-ACET 5/325MG TAB PO PRN (00:03)
--- NOTE | 2024-05-23 00:22 | ECG ---
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
[2024-05-23] MEDS ORDERED: ALBUTEROL SULF 2.5 MG/0.5ML(0.5%) NEB SOLN NEB PRN (01:45)
--- NOTE | 2024-05-23 03:46 | ECG ---
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
[2024-05-23 05:35] LABS: Basophils # (auto) 0 10 ^3/uL (0-0.2); Basophils % (auto) 0.4 % (0.0-2.0); Eosinophils # (auto) 0 10 ^3/uL (0-0.8); Eosinophils % (auto) 0.4 % (0.0-7.0); Hematocrit 34.9 % (36.0-46.0); Hemoglobin 11.7 g/dL (12.2-16.2); Lymphocytes # (auto) 1.1 10 ^3/uL (0.4-5.4); Lymphocytes % (auto) 10.5 % (10.0-50.0); Mean Corpuscular Hgb Conc. 33.6 g/dL (32.0-36.0); Mean Corpuscular Volume 95.1 fL (80.0-100.0); Monocytes # (auto) 0.9 10 ^3/uL (0-1.3); Monocytes % (auto) 7.8 % (0.0-12.0); Neutrophils # (auto) 8.8 10 ^3/uL (1.6-8.6); Neutrophils % (auto) 80.9 % (37.0-80.0); Platelet Count (auto) 264 10^3/uL (140-450); Red Blood Cells 3.67 10^6/uL (4.0-5.20); White Blood Cell 10.9 10^3/uL (4.4-10.8)
[2024-05-23 05:52] LABS: Alanine Aminotransferase 16 U/L (7-40); Albumin 3.8 g/dL (3.2-4.8); Alkaline Phosphatase 90 U/L (46-116); Anion Gap 8 (5-15); BUN/Creatinine Ratio 21.1 (10.0-20.0); Blood Urea Nitrogen 19 mg/dL (9-23); Calcium 10.7 mg/dL (8.7-10.4); Carbon Dioxide 32 mmol/L (20-31); Chloride 98 mmol/L (98-107); Glucose 104 mg/dL (74-106); Potassium 3.4 mmol/L (3.5-5.1); Sodium 138 mmol/L (136-145)
[2024-05-23 05:53] LABS: Aspartate Aminotransferase 20 U/L (13-40); Bilirubin, Total 0.4 mg/dL (0.2-1.0); Total Protein 6.4 g/dL (5.7-8.2)
[2024-05-23] MEDS: LEVOTHYROXINE SODIUM 50 MCG TAB PO SCH (05:59)
[2024-05-23] MEDS: SODIUM CHLOR 0.9% PF (SALINE LOCK) 10ML VIAL/SYR IV SCH (06:00)
[2024-05-23] MEDS ORDERED: HYDR200T36 PO (07:02)
[2024-05-23] MEDS: LEVALBUTEROL HCL 1.25 MG/3 ML NEB NEB SCH (08:09)
[2024-05-23] MEDS: ONDANSETRON HCL 4 MG/2 ML VIAL IV PRN (08:16)
[2024-05-23] MEDS: cefTRIAXone 1GM/50ML D5W 50 ML IV SCH (08:16)
[2024-05-23] MEDS: FUROSEMIDE 20 MG/2 ML VIAL IV SCH (10:00)
[2024-05-23] MEDS: ASPirin 81 mg TAB PO SCH (11:27)
[2024-05-23] MEDS: POTASSIUM CHL 20 Meq TABLET PO ONE (11:27)
[2024-05-23] MEDS: METOPROLOL TARTRATE 25 MG TAB PO SCH (11:31)
--- NOTE | 2024-05-23 12:02 | DVHINCON2 ---
Date Seen: May 23, 2024 Referring Physician RONALDO Dillard Reason for Consultation Supraventricular tachycardia History of Present Illness This is a 74-year-old female patient who presents to the emergency room with multiple chief complaints. The patient reports she was feeling palpitations and chest pain for approximately one day, she also reports abdominal pain, nausea, and loss of appetite for two days. She comes to the emergency room for further evaluation. While in the emergency room, a twelve lead electrocardiogram reveals supraventricular tachycardia with heart rate reaching 170's. While in the emergency room, the patient was given adenosine with no effect. The patient was then successfully cardioverted by ER physician. Initial troponin level of 75ng/L with flat trend thereafter. At the time of assessment, the patient remains in sinus tachycardia with multiple PACs. Significant past medical history includes congestive heart failure, hypertension, COPD, asthma, hypothyroidism, rheumatoid arthritis, chronic back pain and obesity. 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 Past Medical History Past medical history reviewed. No other significant than mentioned above. Past Surgical History Bilateral knee replacement Cervical laminectomy x2 Cholecystectomy Umbilical hernia repair Family History: Patient reports no known family medical history. Family History Family history reviewed. Social History Patient reports a 38 pack-year history, quit smoking approximately 30 years ago Patient denies any alcohol use Patient denies any illicit drug use Allergies: Coded Allergies: NO KNOWN ALLERGIES (Unverified , 07/27/19) Home Meds Reported Medications Hydroxychloroquine Sulfate (Hydroxychloroquine Sulfat) 200 Mg Tab, 1 TAB PO D AILY 05/23/24 Dgpfbxjqzpr-Xnjvnjmpxdat-Uzaat (Trelegy Ellipta 200-62.5-25 Mcg/INH) 1 Aer Aer, 1 AER IN, AER 05/19/24 Potassium Chloride (Klor-Con M20) 20 Meq Tab, 20 MEQ PO BID, TAB 05/19/24 Albuterol Sulfate (VENTOLIN MDI) 90 Mcg Ih, 90 MCG IN PRN, INH 05/19/24 Methotrexate (Methotrexate) 2.5 Mg Tab, 4 TAB PO QWEEKLY, TAB 05/19/24 Metoprolol Succinate (Metoprolol Succinate Er) 25 Mg Tab, 25 MG PO DAILY for 30 Days, MG 07/27/19 Hydrocodone-Acetaminophen ([place] 10-325 mg) 1 Tab Tab, 1 TAB PO Q8HPRN PRN for PAIN SCALE 7 THRU 10, TAB 04/12/19 Morphine Sulfate (Morphine Sulfate) 15 Mg Tab, 15 MG PO BID, TAB 04/12/19 Doxepin Hcl (Doxepin Hcl) 25 Mg Cap, 100 MG PO HS, CAP 04/12/19 Enalapril Maleate (Enalapril Maleate) 5 Mg Tab, 5 MG PO BID, TAB 04/12/19 Leucovorin Calcium (Leucovorin Calcium) 10 Mg Tab, 10 MG PO QWEEKLY, TAB 04/12/19 Levothyroxine Sodium (Levothyroxine Sodium) 175 Mcg Tab, 175 MCG PO DAILY, TAB 04/12/19 Esomeprazole Magnesium (Esomeprazole Magnesium) 40 Mg Cap, 40 MG PO DAILY, CAP 04/12/19 Furosemide (Furosemide) 20 Mg Tab, 1-2 TAB PO DAILYPRN for SWELLING, TAB 04/12/19 Fexofenadine HCl (Allergy Relief 24Hr) 180 Mg Tab, 180 MG PO DAILY, TAB 04/12/19 Sucralfate (Sucralfate) 1 Gm Tab, 1 GM PO QID, GM 04/12/19 Theophylline (Theophylline Sr) 300 Mg Tab, 300 MG PO BID, TAB 04/12/19 Acyclovir (Acyclovir) 200 Mg Cap, 400 MG PO BID, TAB 04/12/19 Discontinued Reported Medications Triamcinolone Acetonide (Nasal (Nasal Allergy 24 Hour Mul) 55 Mcg/Act Spr, 55 MCG NA DAILY, SPR 04/12/19 Zolpidem Tartrate (Ambien) 10 Mg Tab, 10 MG PO HS, TAB 04/12/19 Hydrochlorothiazide W/Triamter (Dyazide 37.5/25MG) 1 Cap Cp, 1 CAP PO DAILY, #90 CAP 3 Refills 04/12/19 Tizanidine Hydrochloride (Tizanidine Hcl) 4 Mg Tab, 4 MG PO HS, TAB 04/12/19 Home Meds Home medications reviewed. Current Medications Current Medications Medications (Trade) Dose Ordered Sig/Vashti Route PRN Reason Start Time Stop Time Status Last Admin Amiodarone HCl 250 ml @ 33.333 mls/ hr Q7H30M IV 05/22/24 20:30 05/23/24 02:29 DC Amiodarone HCl 250 ml @ 16.667 mls/ hr Q15H IV 05/23/24 02:30 Aspirin 81 mg DAILY PO 05/23/24 10:00 05/23/24 11:27 Famotidine (Pepcid Injection) 20 mg DAILY IV 05/23/24 10:00 Furosemide (Lasix Injection) 20 mg DAILY IV 05/23/24 10:00 Metoprolol Tartrate (Lopressor Tablet) 25 mg BID PO 05/23/24 10:00 05/23/24 11:31 Levothyroxine Sodium (Synthroid Tablet) 150 mcg QAM@0600 PO 05/23/24 06:00 05/23/24 05:59 Ceftriaxone Sodium 50 ml @ 100 mls/hr DAILY@09 IV 05/23/24 09:00 05/23/24 08:16 Sodium Chloride (Saline Lock Ns) 10 ml Q8HR IV 05/23/24 06:00 05/23/24 06:00 Acetaminophen/ Hydrocodone Bitart ([place] 5/325MG Tab) 1 tab Q4HP PRN PO MODERATE PAIN (4-6 PAIN SCALE) 05/22/24 22:15 05/23/24 08:27 Ondansetron HCl (Zofran) 4 mg Q4HP PRN IV NAUSEA / VOMITING 05/22/24 22:15 05/23/24 08:16 Docusate Sodium (Colace Capsule) 100 mg BIDPRN PRN PO FOR CONSTIPATION 05/22/24 22:15 Acetaminophen (Tylenol Tablet) 650 mg Q6HP PRN PO PAIN SCALE 1-3 OR TEMP>100.4 05/22/24 22:15 Nitroglycerin (Ntrostat Sublingual) 0.4 mg Q5MINP PRN SL FOR CHEST PAIN 05/22/24 23:45 Morphine Sulfate 2 mg Q30M PRN IV FOR CHEST PAIN 05/22/24 23:45 Ipratropium [place] (Atrovent Medneb) 0.5 mg Q6HPRN PRN NEB SHORTNESS OF BREATH 05/23/24 01:45 Albuterol (Ventolin Medneb) 2.5 mg Q6HPRN PRN NEB SHORTNESS OF BREATH 05/23/24 01:45 05/23/24 01:45 DC Levalbuterol HCl (Xopenex Medneb) 0.625 mg Q6HPRN NEB 05/23/24 06:00 Review of Systems Constitutional: No symptom reported Ears, Nose, & Throat: No symptom reported Eyes: No symptom reported Neurological: No symptoms reported Pulmonary/Respiratory: No symptoms reported Cardiovascular: Palpitations, chest pain Gastrointestinal: Nausea Genitourinary: No symptom reported Musculoskeletal: No symptom reported Skin: No symptom reported Psychiatric: No symptom reported Endocrine: No symptom reported Hematologic/Lymphatic: No symptom reported Vital Signs Vital Signs Date Time Temp Pulse Resp B/P (MAP) Pulse Ox O2 Delivery O2 Flow Rate FiO2 05/23/24 11:31 115 123/55 05/23/24 09:00 97.5 22 97 97.5 05/23/24 08:13 Nasal Cannula 2.0 05/23/24 08:13 28 Physical Exam General Appearance: Cooperative. Morbidly obese Pulmonary/Respiratory: Clear, bilateral breaths sounds. Cardiovascular/Chest: Regular rate and rhythm. Peripheral Pulses: 2+ Radial (R). 2+ Radial (L). 1+ Pedal (R). 1+ Pedal (L) Abdominal Exam: Normal bowel sounds. Ankle Exam: 3+ pitting edema Lower extremities: 3+ pitting edema Neuro/Mental Status: A/OX4, coherent. Thoughts/Psych: Normal thought pattern. Appropriate mood and affect. Good judgment and insight. Appearance: No acute distress. Skin Exam: Normal inspection. Normal color. Warm and dry. Labs/Diagnostic Data Labs Test 05/23/24 05:10 05/22/24 17:24 05/22/24 17:21 Range/Units White Blood Count 10.9 H 4.4-10.8 10^3/uL Red Blood Count 3.67 L 4.0-5.20 10^6/uL Hemoglobin 11.7 L 12.2-16.2 g/dL Hematocrit 34.9 L 36.0-46.0 % Mean Corpuscular Volume 95.1 80.0-100.0 fL Mean Corpuscular Hemoglobin 32.0 28.0-32.0 pg Mean Corpuscular Hemoglobin Concent 33.6 32.0-36.0 g/dL Red Cell Distribution Width 16.0 H 11.8-14.3 % Platelet Count 264 140-450 10^3/uL Mean Platelet Volume 8.7 6.9-10.8 fL Neutrophils (%) (Auto) 80.9 H 37.0-80.0 % Lymphocytes (%) (Auto) 10.5 10.0-50.0 % Monocytes (%) (Auto) 7.8 0.0-12.0 % Eosinophils (%) (Auto) 0.4 0.0-7.0 % Basophils (%) (Auto) 0.4 0.0-2.0 % Neutrophils # (Auto) 8.8 H 1.6-8.6 10 ^3/uL Lymphocytes # (Auto) 1.1 0.4-5.4 10 ^3/uL Monocytes # (Auto) 0.9 0-1.3 10 ^3/uL Eosinophils # (Auto) 0 0-0.8 10 ^3/uL Basophils # (Auto) 0 0-0.2 10 ^3/uL Nucleated Red Blood Cells 0.0 % Sodium Level 138 136-145 mmol/L Potassium Level 3.4 L 3.5-5.1 mmol/L Chloride Level 98 98-107 mmol/L Carbon Dioxide Level 32 H 20-31 mmol/L Anion Gap 8 5-15 Blood Urea Nitrogen 19 9-23 mg/dL Creatinine 0.90 0.550-1.02 mg/dL Glomerular Filtration Rate Calc 67 >90 mL/min BUN/Creatinine Ratio 21.1 H 10.0-20.0 Serum Glucose 104 74-106 mg/dL Calcium Level 10.7 H 8.7-10.4 mg/dL Magnesium Level 1.8 1.6-2.6 mg/dL Total Bilirubin 0.4 0.2-1.0 mg/dL Aspartate Amino Transferase (AST) 20 13-40 U/L Alanine Aminotransferase (ALT) 16 7-40 U/L Alkaline Phosphatase 90 46-116 U/L Troponin I High Sensitivity 65 *H </=34 ng/L Total Protein 6.4 5.7-8.2 g/dL Albumin 3.8 3.2-4.8 g/dL B-Type Natriuretic Peptide 423.72 0-100 pg/mL Thyroid Stimulating Hormone (TSH) 0.74 0.55-4.78 uIU/mL Urine Color Colorless Yellow Urine Clarity Clear Clear Urine pH 5.5 5.0-9.0 Urine Specific [place] 1.007 1.001-1.035 Urine Protein Negative Negative Urine Ketones Negative Negative Urine Blood Negative Negative /uL Urine Nitrite Negative Negative Urine Bilirubin Negative Negative Urine Urobilinogen Normal Negative mg/dL Urine Leukocyte Esterase 1+ Negative /uL Urine RBC <1 0 - 4 /hpf Urine WBC 6 0 - 5 /hpf Urine Squamous Epithelial Cells Few <5 /hpf Urine Bacteria None seen None Seen /hpf Urine Glucose Normal Normal mg/dL Assessment Supraventricular tachycardia status post direct current cardioversion NSTEMI type II secondary to above Rule out structural heart disease Hypertension COPD Hypothyroidism Hypokalemia Obesity Plan/Recommendation We will continue with the following plan/recommendations (): * Echocardiogram to evaluate cardiac function * Continue beta-ebony * Cardiac surveillance * Monitor and replete electrolytes as needed Patient seen and examined at bedside with . Plan of care discussed with the patient and bedside RN. Thank you for allowing us to care for this patient. Please call with any questions or concerns. Critical care time spent: 44 minutes This medical document was created using an electronic medical record system with voice recognition software and computerized dictation system. Although this document has been carefully reviewed, there might still be some phonetic and typographical errors. Occasional wrong-word or ``sound-alike substitutions may have occurred due to the inherent limitations of voice recognition software. These areas are purely typographical due to imperfections of the software programs and do not reflect any compromise in the patient's medical care. Please read the chart carefully and recognize, using context, where these substitutions have occurred. Plan discussed with: Patient Date of Service: May 23, 2024 Billing Provider: SARA DU Cardiology Common Codes: [id number] INP/OBS CARE (High) SARA DU May 23, 2024 12:02
[2024-05-23] MEDS: FAMOTIDINE (10MG/ML) 2ML VL IV SCH (14:27)
[2024-05-23] MEDS: MAGNESIUM SULFATE 1GM/100ML 100 ML IV ONE (14:32)
[2024-05-23] MEDS: DOCUSATE SOD 100 MG CAP PO PRN (14:45)
--- NOTE | 2024-05-23 15:58 | DVHPN2 ---
Subjective 74-year-old female known history of congestive heart. Hypertension distally presented to the hospital with chest pain palpitation found to have SVT status post adenosine without any factor eventually status post subjective cardioversion. Patient was currently denies any chest pain palpitations. Reviewed: Care Plan Changes from previous H/P or p: No Changes Eyes: No Pain, No Vision change, No Conjunctivae inflammation, No Eyelid inflammation, No Other, No Redness ENT: No Ear pain, No Ear discharge, No Nose pain, No Nose discharge, No Nose congestion, No Mouth pain, No Mouth swelling, No Throat pain, No Throat swelling, No Other Cardiovascular: No Chest Pain; Palpitations; No Orthopnea, No Paroxysmal Noc. Dyspnea, No Edema, No Lt Headedness, No Other Respiratory: No Cough, No Dry, No Shortness of breath, No SOB with excertion, No Wheezing, No Hemoptysis, No Pleuritic Pain, No Sputum, No Other Gastrointestinal: No Nausea, No Vomiting, No Abdominal Pain, No Diarrhea, No Constipation, No Melena, No Hematochezia, No Other Genitourinary: No Dysuria, No Frequency, No Incontinence, No Hematuria, No Retention, No Other Musculoskeletal: No other, No neck pain, No shoulder pain, No arm pain, No back pain, No hand pain, No leg pain, No foot pain Skin: No Rash, No Lesions, No Jaundice, No Bruising, No Other Objective Vitals Vital Signs Date Time Temp Pulse Resp B/P (MAP) Pulse Ox O2 Delivery O2 Flow Rate FiO2 05/23/24 13:00 98.0 113 22 134/70 (91) 97 98.0 05/23/24 08:13 Nasal Cannula 2.0 05/23/24 08:13 28 Intake/Output Intake and Output 05/23/24 07:00 Output Total 450 ml Balance -450 ml Output Urine Total 450 ml Exam HEENT pupils are reactive Neck is supple CV is S1-S2 regular rate and rhythm Respiratory bilateral basal crackles GI posterior bowel sound Extremity trace edema [employer]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 Medications Current Medications Medications Dose Ordered Sig/Vashti Route Start Time Stop Time Status Last Admin Dose Admin Aspirin 81 mg DAILY PO 05/23/24 10:00 05/23/24 11:27 81 MG Famotidine 20 mg DAILY IV 05/23/24 10:00 05/23/24 14:27 20 MG Furosemide 20 mg DAILY IV 05/23/24 10:00 Metoprolol Tartrate 25 mg BID PO 05/23/24 10:00 05/23/24 11:31 25 MG Levothyroxine Sodium 150 mcg QAM@0600 PO 05/23/24 06:00 05/23/24 05:59 150 MCG Ceftriaxone Sodium 50 ml @ 100 mls/hr DAILY@09 IV 05/23/24 09:00 05/23/24 08:16 100 MLS/HR Sodium Chloride 10 ml Q8HR IV 05/23/24 06:00 05/23/24 14:32 10 ML Acetaminophen/ Hydrocodone Bitart 1 tab Q4HP PRN PO 05/22/24 22:15 05/23/24 14:46 1 TAB Ondansetron HCl 4 mg Q4HP PRN IV 05/22/24 22:15 05/23/24 08:16 4 MG Docusate Sodium 100 mg BIDPRN PRN PO 05/22/24 22:15 05/23/24 14:45 100 MG Acetaminophen 650 mg Q6HP PRN PO 05/22/24 22:15 Nitroglycerin 0.4 mg Q5MINP PRN SL 05/22/24 23:45 Morphine Sulfate 2 mg Q30M PRN IV 05/22/24 23:45 Ipratropium [place] 0.5 mg Q6HPRN PRN NEB 05/23/24 01:45 Levalbuterol HCl 0.625 mg Q6HPRN NEB 05/23/24 06:00 Laboratory Results Laboratory Tests 05/23/24 05:10 Chemistry Test 05/22/24 17:24 05/23/24 05:10 Albumin 4.3 g/dL (3.2-4.8) 3.8 g/dL (3.2-4.8) Calcium Level 10.9 mg/dL (8.7-10.4) H 10.7 mg/dL (8.7-10.4) H Magnesium Level 1.9 mg/dL (1.6-2.6) 1.8 mg/dL (1.6-2.6) Total Protein 7.1 g/dL (5.7-8.2) 6.4 g/dL (5.7-8.2) Cardiac Markers Test 05/22/24 17:24 B-Type Natriuretic Peptide 423.72 pg/mL (0-100) LFT Test 05/22/24 17:24 05/23/24 05:10 Alanine Aminotransferase (ALT) 14 U/L (7-40) 16 U/L (7-40) Alkaline Phosphatase 99 U/L (46-116) 90 U/L (46-116) Aspartate Amino Transferase (AST) 22 U/L (13-40) 20 U/L (13-40) Total Bilirubin 0.5 mg/dL (0.2-1.0) 0.4 mg/dL (0.2-1.0) HgA1c, TSH Test 05/22/24 17:24 Thyroid Stimulating Hormone (TSH) 0.74 uIU/mL (0.55-4.78) Urinalysis Test 05/22/24 17:21 Urine Color Colorless (Yellow) Urine Clarity Clear (Clear) Urine pH 5.5 (5.0-9.0) Urine Specific [place] 1.007 (1.001-1.035) Urine Protein Negative (Negative) Urine Ketones Negative (Negative) Urine Blood Negative /uL (Negative) Urine Nitrite Negative (Negative) Urine Bilirubin Negative (Negative) Urine Urobilinogen Normal mg/dL (Negative) Urine Leukocyte Esterase 1+ /uL (Negative) Urine RBC <1 /hpf (0 - 4) Urine WBC 6 /hpf (0 - 5) Urine Squamous Epithelial Cells Few /hpf (<5) Urine Bacteria None seen /hpf (None Seen) Urine Glucose Normal mg/dL (Normal) Assessment/Plan Assessment/Plan 74-year-old female who initially with a has been has been palpitations found to have 1. SVT status post cardioversion 2. Acute on chronic congestive heart failure with systolic dysfunction 3. Hypertension 4. Dyslipidemia 5. Morbid obesity class three 6. Elevated troponin suspect NSTEMI type 2 secondary to SVT and congestive heart failure exacerbation -continue IV diuresis, continue beta-ebony follow up Cardiology recommendation -physical therapy evaluation and treatment Plan discussed with: Patient Problem List: (1) SVT (supraventricular tachycardia) (2) Urinary tract infection (3) Pulmonary edema (4) Acute exacerbation of congestive heart failure (5) Elevated troponin Date of Service: May 23, 2024 Billing Provider: RUBENS ROBERTS MD Common Visit Codes: [id number] INP/OBS CARE(MOD) RUBENS ROBERTS MD May 23, 2024 15:58
--- NOTE | 2024-05-23 18:56 | DVHSR ---
APPROVED REPORT EXAM: LIMITED Two-dimensional and M-mode echocardiogram with Doppler and color Doppler. RISK FACTORS Obesity: Height: 5' 1", Weight: 211 DIMENSIONS LVDd3.9 (3.8-5.7cm)LA (2D)4.2 (1.9-4.0cm)Aortic Root2.6 (2.0-3.7cm) LVDs2.9 (2.5-4.0cm)LA (MM) (1.9-4.0cm)Aortic Cusp Exc1.5 (1.5-2.0cm) EF (%) 50.0 (55-70%)Rt. Atrium4.3 (1.9-4.0cm)Asc. Aorta cm IVSd1.2 (0.7-1.1cm)RV (D) (1.8-2.4cm) PWd1.3 (0.7-1.1cm) Mitral Valve MitralMitral Stenosis E wave1.50m/sMV Mean GR.mmHg A wave1.30m/sMV Peak GR.mmHg E/A ratio1.22D MVAcm2 Aortic Valve Aortic ValveAortic Stenosis V10.70m/Patty Mean GR.4mmHg V21.30m/Patty Peak GR.8mmHg LVOT Diameter1.9 (1.8-2.4cm)Doppler AVA1.53cm2 Pulmonic Valve V20.80m/s Tricuspid Valve TR Velocity2.90m/s [id number] Other Information Quality : Technically LimitedRhythm : Abnormal Technically limited study due to body habitus. Conclusion MODERATE DEGREE LVH AND MODERATE DEGREE LV DIASTOLIC DYSFUNCTION LV EJECTION FRACTION IS 55% REMARKABLY LEFT ATRIUM MITRAL VALVE CALCIFIED MODERATELY DILATED RV AND RA IT IS RV FAILURE RVSP IS 40 MM OF HG NO EFFUSION
--- NOTE | 2024-05-23 20:16 | DVHINCON2 ---
Date Seen: May 23, 2024 Referring Physician RONALDO Dillard Reason for Consultation Supraventricular tachycardia History of Present Illness This is a 74-year-old female with a past medical history of congestive heart failure, hypertension, COPD, asthma, hypothyroidism, rheumatoid arthritis, chronic back pain and obesity who presented to the ED with complaints of heart palpitations and chest pain for approximately one day. She also reports abdominal pain, nausea, and loss of appetite for two days. 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 Twelve lead electrocardiogram reveals supraventricular tachycardia with heart rate reaching 170's. While in the ED the patient was given adenosine with no effect. Patient was then successfully cardioverted by ED physician. Initial troponin level of 75ng/L with flat trend thereafter. WBC 10.9, K 3.4, CO2 32. Chest x-ray shows mild interstitial pulmonary edema in the setting of cardiomegaly, trace bilateral pleural effusions. Family History: Patient reports no known family medical history. Allergies: Coded Allergies: NO KNOWN ALLERGIES (Unverified , 07/27/19) Home Meds Reported Medications Hydroxychloroquine Sulfate (Hydroxychloroquine Sulfat) 200 Mg Tab, 1 TAB PO DAILY 05/23/24 Azdglbpdabl-Fnurwzfkrpus-Cnzzd (Trelegy Ellipta 200-62.5-25 Mcg/INH) 1 Aer Aer, 1 AER IN, AER 05/19/24 Potassium Chloride (Klor-Con M20) 20 Meq Tab, 20 MEQ PO BID, TAB 05/19/24 Albuterol Sulfate (VENTOLIN MDI) 90 Mcg Ih, 90 MCG IN PRN, INH 05/19/24 Methotrexate (Methotrexate) 2.5 Mg Tab, 4 TAB PO QWEEKLY, TAB 05/19/24 Metoprolol Succinate (Metoprolol Succinate Er) 25 Mg Tab, 25 MG PO DAILY for 30 Days, MG 07/27/19 Hydrocodone-Acetaminophen ([place] 10-325 mg) 1 Tab Tab, 1 TAB PO Q8HPRN PRN for PAIN SCALE 7 THRU 10, TAB 04/12/19 Morphine Sulfate (Morphine Sulfate) 15 Mg Tab, 15 MG PO BID, TAB 04/12/19 Doxepin Hcl (Doxepin Hcl) 25 Mg Cap, 100 MG PO HS, CAP 04/12/19 Enalapril Maleate (Enalapril Maleate) 5 Mg Tab, 5 MG PO BID, TAB 04/12/19 Leucovorin Calcium (Leucovorin Calcium) 10 Mg Tab, 10 MG PO QWEEKLY, TAB 04/12/19 Levothyroxine Sodium (Levothyroxine Sodium) 175 Mcg Tab, 175 MCG PO DAILY, TAB 04/12/19 Esomeprazole Magnesium (Esomeprazole Magnesium) 40 Mg Cap, 40 MG PO DAILY, CAP 04/12/19 Furosemide (Furosemide) 20 Mg Tab, 1-2 TAB PO DAILYPRN for SWELLING, TAB 04/12/19 Fexofenadine HCl (Allergy Relief 24Hr) 180 Mg Tab, 180 MG PO DAILY, TAB 04/12/19 Sucralfate (Sucralfate) 1 Gm Tab, 1 GM PO QID, GM 04/12/19 Theophylline (Theophylline Sr) 300 Mg Tab, 300 MG PO BID, TAB 04/12/19 Acyclovir (Acyclovir) 200 Mg Cap, 400 MG PO BID, TAB 04/12/19 Discontinued Reported Medications Triamcinolone Acetonide (Nasal (Nasal Allergy 24 Hour Mul) 55 Mcg/Act Spr, 55 MCG NA DAILY, SPR 04/12/19 Zolpidem Tartrate (Ambien) 10 Mg Tab, 10 MG PO HS, TAB 04/12/19 Hydrochlorothiazide W/Triamter (Dyazide 37.5/25MG) 1 Cap Cp, 1 CAP PO DAILY, #90 CAP 3 Refills 04/12/19 Tizanidine Hydrochloride (Tizanidine Hcl) 4 Mg Tab, 4 MG PO HS, TAB 04/12/19 Current Medications Current Medications Medications (Trade) Dose Ordered Sig/Vashti Route PRN Reason Start Time Stop Time Status Last Admin Amiodarone HCl 250 ml @ 33.333 mls/ hr Q7H30M IV 05/22/24 20:30 05/23/24 02:29 DC Amiodarone HCl 250 ml @ 16.667 mls/ hr Q15H IV 05/23/24 02:30 05/23/24 11:59 DC Aspirin 81 mg DAILY PO 05/23/24 10:00 05/23/24 11:27 Famotidine (Pepcid Injection) 20 mg DAILY IV 05/23/24 10:00 05/23/24 14:27 Furosemide (Lasix Injection) 20 mg DAILY IV 05/23/24 10:00 Metoprolol Tartrate (Lopressor Tablet) 25 mg BID PO 05/23/24 10:00 05/23/24 11:31 Levothyroxine Sodium (Synthroid Tablet) 150 mcg QAM@0600 PO 05/23/24 06:00 05/23/24 05:59 Ceftriaxone Sodium 50 ml @ 100 mls/hr DAILY@09 IV 05/23/24 09:00 05/23/24 08:16 Sodium Chloride (Saline Lock Ns) 10 ml Q8HR IV 05/23/24 06:00 05/23/24 14:32 Acetaminophen/ Hydrocodone Bitart ([place] 5/325MG Tab) 1 tab Q4HP PRN PO MODERATE PAIN (4-6 PAIN SCALE) 05/22/24 22:15 05/23/24 14:46 Ondansetron HCl (Zofran) 4 mg Q4HP PRN IV NAUSEA / VOMITING 05/22/24 22:15 05/23/24 08:16 Docusate Sodium (Colace Capsule) 100 mg BIDPRN PRN PO FOR CONSTIPATION 05/22/24 22:15 05/23/24 14:45 Acetaminophen (Tylenol Tablet) 650 mg Q6HP PRN PO PAIN SCALE 1-3 OR TEMP>100.4 05/22/24 22:15 Nitroglycerin (Ntrostat Sublingual) 0.4 mg Q5MINP PRN SL FOR CHEST PAIN 05/22/24 23:45 Morphine Sulfate 2 mg Q30M PRN IV FOR CHEST PAIN 05/22/24 23:45 Ipratropium [place] (Atrovent Medneb) 0.5 mg Q6HPRN PRN NEB SHORTNESS OF BREATH 05/23/24 01:45 Albuterol (Ventolin Medneb) 2.5 mg Q6HPRN PRN NEB SHORTNESS OF BREATH 05/23/24 01:45 05/23/24 01:45 DC Levalbuterol HCl (Xopenex Medneb) 0.625 mg Q6HPRN NEB 05/23/24 06:00 Review of Systems Constitutional: No symptom reported Ears, Nose, & Throat: No symptom reported Eyes: No symptom reported Neurological: No symptoms reported Pulmonary/Respiratory: No symptoms reported Cardiovascular: Palpitations, chest pain Gastrointestinal: Nausea Genitourinary: No symptom reported Musculoskeletal: No symptom reported Skin: No symptom reported Psychiatric: No symptom reported Endocrine: No symptom reported Hematologic/Lymphatic: No symptom reported Vital Signs Vital Signs Date Time Temp Pulse Resp B/P (MAP) Pulse Ox O2 Delivery O2 Flow Rate FiO2 05/23/24 13:00 98.0 113 22 134/70 (91) 97 98.0 05/23/24 08:13 Nasal Cannula 2.0 05/23/24 08:13 28 Physical Exam GENERAL: Awake, alert, oriented. Morbidly obese. LUNGS: Clear. CARDIOVASCULAR: Heart sounds are good. ABDOMEN: Soft. EXT: +3 pitting edema. Labs/Diagnostic Data Labs Test 05/23/24 05:10 05/22/24 17:24 05/22/24 17:21 Range/Units White Blood Count 10.9 H 4.4-10.8 10^3/uL Red Blood Count 3.67 L 4.0-5.20 10^6/uL Hemoglobin 11.7 L 12.2-16.2 g/dL Hematocrit 34.9 L 36.0-46.0 % Mean Corpuscular Volume 95.1 80.0-100.0 fL Mean Corpuscular Hemoglobin 32.0 28.0-32.0 pg Mean Corpuscular Hemoglobin Concent 33.6 32.0-36.0 g/dL Red Cell Distribution Width 16.0 H 11.8-14.3 % Platelet Count 264 140-450 10^3/uL Mean Platelet Volume 8.7 6.9-10.8 fL Neutrophils (%) (Auto) 80.9 H 37.0-80.0 % Lymphocytes (%) (Auto) 10.5 10.0-50.0 % Monocytes (%) (Auto) 7.8 0.0-12.0 % Eosinophils (%) (Auto) 0.4 0.0-7.0 % Basophils (%) (Auto) 0.4 0.0-2.0 % Neutrophils # (Auto) 8.8 H 1.6-8.6 10 ^3/uL Lymphocytes # (Auto) 1.1 0.4-5.4 10 ^3/uL Monocytes # (Auto) 0.9 0-1.3 10 ^3/uL Eosinophils # (Auto) 0 0-0.8 10 ^3/uL Basophils # (Auto) 0 0-0.2 10 ^3/uL Nucleated Red Blood Cells 0.0 % Sodium Level 138 136-145 mmol/L Potassium Level 3.4 L 3.5-5.1 mmol/L Chloride Level 98 98-107 mmol/L Carbon Dioxide Level 32 H 20-31 mmol/L Anion Gap 8 5-15 Blood Urea Nitrogen 19 9-23 mg/dL Creatinine 0.90 0.550-1.02 mg/dL Glomerular Filtration Rate Calc 67 >90 mL/min BUN/Creatinine Ratio 21.1 H 10.0-20.0 Serum Glucose 104 74-106 mg/dL Calcium Level 10.7 H 8.7-10.4 mg/dL Magnesium Level 1.8 1.6-2.6 mg/dL Total Bilirubin 0.4 0.2-1.0 mg/dL Aspartate Amino Transferase (AST) 20 13-40 U/L Alanine Aminotransferase (ALT) 16 7-40 U/L Alkaline Phosphatase 90 46-116 U/L Troponin I High Sensitivity 65 *H </=34 ng/L Total Protein 6.4 5.7-8.2 g/dL Albumin 3.8 3.2-4.8 g/dL B-Type Natriuretic Peptide 423.72 0-100 pg/mL Thyroid Stimulating Hormone (TSH) 0.74 0.55-4.78 uIU/mL Urine Color Colorless Yellow Urine Clarity Clear Clear Urine pH 5.5 5.0-9.0 Urine Specific [place] 1.007 1.001-1.035 Urine Protein Negative Negative Urine Ketones Negative Negative Urine Blood Negative Negative /uL Urine Nitrite Negative Negative Urine Bilirubin Negative Negative Urine Urobilinogen Normal Negative mg/dL Urine Leukocyte Esterase 1+ Negative /uL Urine RBC <1 0 - 4 /hpf Urine WBC 6 0 - 5 /hpf Urine Squamous Epithelial Cells Few <5 /hpf Urine Bacteria None seen None Seen /hpf Urine Glucose Normal Normal mg/dL Assessment Supraventricular tachycardia status post direct current cardioversion. NSTEMI type II secondary to above. Rule out structural heart disease. Hypertension. COPD. Hypothyroidism. Obesity. Plan/Recommendation I agree with your ongoing assessment and care of plan. Patient has been seen by Carol Ramires NP on my behalf, her and i discussed the plan with the patient. Echocardiogram to evaluate cardiac function. Continue beta-ebony. Cardiac surveillance. Monitor and replete electrolytes as needed Additional plan as per the hospital course. Plan discussed with: Patient Date of Service: May 23, 2024 Billing Provider: LEATHA ROWLAND MD Cardiology Common Codes: [id number] INP/OBS CARE (High) LEATHA ROWLAND MD May 23, 2024 16:55
--- NOTE | 2024-05-23 21:14 | DVHPN2 ---
Progress Note - Dictate Date Seen: May 23, 2024 Medical Necessity Reason Pt with a Central, PICC or Fol: Yes The following are medically ne: Aguillon Catheter Reason for aguillon catheter: Strict I&O Subjective Patient seen and examined at bedside. Remains on supplemental oxygen Overnight events reviewed. vital signs Vital Sign Date Time Temp Pulse Resp B/P (MAP) Pulse Ox O2 Delivery O2 Flow Rate FiO2 05/23/24 19:40 96 Nasal Cannula* 3 32 05/23/24 17:00 99.0 89 22 146/77 (100) 99.0 Total Intake and Output 05/22/24 05/22/24 05/23/24 15:00 23:00 07:00 Output Total 450 ml Balance -450 ml medications Current Medications Medications Dose Ordered Sig/Vashti Route Start Time Stop Time Status Last Admin Dose Admin Aspirin 81 mg DAILY PO 05/23/24 10:00 05/23/24 11:27 Famotidine 20 mg DAILY IV 05/23/24 10:00 05/23/24 14:27 Furosemide 20 mg DAILY IV 05/23/24 10:00 Metoprolol Tartrate 25 mg BID PO 05/23/24 10:00 05/23/24 11:31 Levothyroxine Sodium 150 mcg QAM@0600 PO 05/23/24 06:00 05/23/24 05:59 Ceftriaxone Sodium 50 ml @ 100 mls/hr DAILY@09 IV 05/23/24 09:00 05/23/24 08:16 Sodium Chloride 10 ml Q8HR IV 05/23/24 06:00 05/23/24 14:32 Acetaminophen/ Hydrocodone Bitart 1 tab Q4HP PRN PO 05/22/24 22:15 05/23/24 14:46 Ondansetron HCl 4 mg Q4HP PRN IV 05/22/24 22:15 05/23/24 08:16 Docusate Sodium 100 mg BIDPRN PRN PO 05/22/24 22:15 05/23/24 14:45 Acetaminophen 650 mg Q6HP PRN PO 05/22/24 22:15 Nitroglycerin 0.4 mg Q5MINP PRN SL 05/22/24 23:45 Morphine Sulfate 2 mg Q30M PRN IV 05/22/24 23:45 Ipratropium [place] 0.5 mg Q6HPRN PRN NEB 05/23/24 01:45 Levalbuterol HCl 0.625 mg Q6HPRN NEB 05/23/24 06:00 objective Gen.: Patient lying in bed in no apparent distress. On supplemental oxygen. Head: Normocephalic, atraumatic. Eyes: EOMI/PERRLA. Ears: Normal hearing. Normal anatomy. Neck/trachea: Trachea midline, supple. Nose: Normal external anatomy. Mouth: Moist mucous membranes. Chest: Decreased air entry bilaterally. No wheezing or rhonchi. Cardiovascular: Positive S1, positive S2. Regular rate and rhythm. Abdomen: Positive bowel sounds in all 4 quadrants. Soft, non-tender, non- distended. : Deferred. Rectal: Deferred. Skin: Warm, dry. Intact. Extremities: 2+ radial pulses bilaterally. No lower extremity edema. Neuro: Awake, alert, oriented x3. No gross motor or sensory deficits. Cranial nerves II through XII intact. Gait not assessed. laboratory and microbiology Laboratory Tests 05/23/24 05:10 Test 05/23/24 05:10 Range/Units Serum Glucose 104 74-106 mg/dL Assessment/Plan Impression: Acute on chronic hypoxic respiratory failure RML consolidation Atelectasis Congestive heart failure, acute on chronic Supraventricular tachycardia, s/p cardioversion Urinary tract infection Elevated troponin Pleural effusion Pulmonary edema Obesity Hx of nicotine dependence Events: Remains on supplemental oxygen, 2 LPM NC Taper O2 as tolerated Continue bronchodilators Continue IV antibiotics Incentive spirometry Pain control Avoid oversedation Cardiology recommendations appreciated. Labs and imaging reviewed. Rest of plan as noted below. Plan: Supplemental oxygen Titrate to keep O2 sats above 92%. Patient altered, received ketamine for cardioversion on 05/22. CXR reviewed, revealed mild interstitial edema, trace bilateral pleural effusions. Patient underwent recent bronchoscopy on , 05/20/24. F/u pathology report from bronchoscopy and biopsies. Continue bronchodilators. IV antibiotics Incentive spirometry Maintain euvolemia Monitor renal function. Monitor electrolytes. Supplement as necessary. Monitor ins and outs Diet and lifestyle modifications for weight reduction Obesity - complicates all care DVT prophylaxis. Prognosis: Poor given patient's multiple co-morbidities. Rest of plan per hospitalist and other consultants. A total of 53 minutes of clinical care time was spent reviewing the patient record, examining the patient, making a diagnostic and therapeutic plan, discussing this plan with the medical personnel, following up on diagnostic studies and following the patient for clinical stability excluding any and all procedures. At least 50% of this time was spent in direct, [id number] contact. Thank you, Luis Dillard NP, for allowing me to participate in this patient's care. Further recommendations will depend on the patient's clinical course. Please do not hesitate to contact me if you have any questions or concerns. This medical document was created using an electronic medical record system with [employer] dictation system. Although these documentations are being carefully reviewed, there may still be some phonetic and typographical changes. The errors are purely typographical, due to imperfection on the software program, and do not reflect any compromise in the patient's medical care. Plan discussed with: Patient, Other (RN) SHARIF LUND MD May 23, 2024 21:14
--- NOTE | 2024-05-23 21:14 | DVHINCON2 ---
Date of service: May 22, 2024 Referring Physician Luis Dillard NP Reason for Consultation Acute on chronic hypoxic respiratory failure, RML consolidation, pleural effusion and pulmonary edema. History of Present Illness A 74-year-old woman with past medical history of COPD, asthma, CHF, hypertension, hypothyroidism, rheumatoid arthritis, chronic back pain and obesity who presented to ED today with complaint of chest pain. Patient reports symptoms progressively got worse with palpitations, difficulty breathing that prompted this visit. Labs in ED showed WBC 11.5, platelets 287, sodium 135; potassium 3.7, BUN 15, creatinine 0.84, glucose 118, troponin 75, calcium 10.9, BNP 423.72. Vitals showed BP of 131/78, heart rate 175 and trended down to 104, temperature 99.6 F, O2 saturation 99% on oxygen. Chest x-ray revealed mild interstitial pulmonary edema and trace bilateral pleural effusions. Patient was thus admitted for further care and pulmonary consultation requested for evaluation and management due to these findings. Review of Systems: 14-point review of systems negative unless otherwise noted above. Past Medical History: COPD, asthma, CHF, hypertension, hypothyroidism, rheumatoid arthritis, chronic back pain and obesity Past Surgical History: Bilateral knee replacement Cervical laminectomy x2 Cholecystectomy Umbilical hernia repair Medications: Reviewed. Allergies: No known drug allergies. Family History: No family history of premature CAD. No family history of lung disorders. Social History: Ex-smoker. 38 pack-year history, quit smoking approximately 30 years ago No alcohol or illicit drug use. Family History: Patient reports no known family medical history. Allergies: Coded Allergies: NO KNOWN ALLERGIES (Unverified , 07/27/19) Home Meds Reported Medications Hydroxychloroquine Sulfate (Hydroxychloroquine Sulfat) 200 Mg Tab, 1 TAB PO MANSOOR Y 05/23/24 Qlwluaoqhpv-Skeyescuovrx-Itryn (Trelegy Ellipta 200-62.5-25 Mcg/INH) 1 Aer Aer, 1 AER IN, AER 05/19/24 Potassium Chloride (Klor-Con M20) 20 Meq Tab, 20 MEQ PO BID, TAB 05/19/24 Albuterol Sulfate (VENTOLIN MDI) 90 Mcg Ih, 90 MCG IN PRN, INH 05/19/24 Methotrexate (Methotrexate) 2.5 Mg Tab, 4 TAB PO QWEEKLY, TAB 05/19/24 Metoprolol Succinate (Metoprolol Succinate Er) 25 Mg Tab, 25 MG PO DAILY for 30 Days, MG 07/27/19 Hydrocodone-Acetaminophen ([place]oyle 10-325 mg) 1 Tab Tab, 1 TAB PO Q8HPRN PRN for P AIN SCALE 7 THRU 10, TAB 04/12/19 Morphine Sulfate (Morphine Sulfate) 15 Mg Tab, 15 MG PO BID, TAB 04/12/19 Doxepin Hcl (Doxepin Hcl) 25 Mg Cap, 100 MG PO HS, CAP 04/12/19 Enalapril Maleate (Enalapril Maleate) 5 Mg Tab, 5 MG PO BID, TAB 04/12/19 Leucovorin Calcium (Leucovorin Calcium) 10 Mg Tab, 10 MG PO QWEEKLY, TAB 04/12/19 Levothyroxine Sodium (Levothyroxine Sodium) 175 Mcg Tab, 175 MCG PO DAILY, TAB 04/12/19 Esomeprazole Magnesium (Esomeprazole Magnesium) 40 Mg Cap, 40 MG PO DAILY, CAP 04/12/19 Furosemide (Furosemide) 20 Mg Tab, 1-2 TAB PO DAILYPRN for SWELLING, TAB 04/12/19 Fexofenadine HCl (Allergy Relief 24Hr) 180 Mg Tab, 180 MG PO DAILY, TAB 04/12/19 Sucralfate (Sucralfate) 1 Gm Tab, 1 GM PO QID, GM 04/12/19 Theophylline (Theophylline Sr) 300 Mg Tab, 300 MG PO BID, TAB 04/12/19 Acyclovir (Acyclovir) 200 Mg Cap, 400 MG PO BID, TAB 04/12/19 Discontinued Reported Medications Triamcinolone Acetonide (Nasal (Nasal Allergy 24 Hour Mul) 55 Mcg/Act Spr, 55 MCG NA DAILY, SPR 04/12/19 Zolpidem Tartrate (Ambien) 10 Mg Tab, 10 MG PO HS, TAB 04/12/19 Hydrochlorothiazide W/Triamter (Dyazide 37.5/25MG) 1 Cap Cp, 1 CAP PO DAILY, #90 CAP 3 Refills 04/12/19 Tizanidine Hydrochloride (Tizanidine Hcl) 4 Mg Tab, 4 MG PO HS, TAB 04/12/19 Current Medications Current Medications Medications (Trade) Dose Ordered Sig/Vashti Route PRN Reason Start Time Stop Time Status Last Admin Amiodarone HCl 250 ml @ 16.667 mls/ hr Q15H IV 05/23/24 02:30 05/23/24 11:59 DC Aspirin 81 mg DAILY PO 05/23/24 10:00 05/23/24 11:27 Famotidine (Pepcid Injection) 20 mg DAILY IV 05/23/24 10:00 05/23/24 14:27 Furosemide (Lasix Injection) 20 mg DAILY IV 05/23/24 10:00 Metoprolol Tartrate (Lopressor Tablet) 25 mg BID PO 05/23/24 10:00 05/23/24 11:31 Levothyroxine Sodium (Synthroid Tablet) 150 mcg QAM@0600 PO 05/23/24 06:00 05/23/24 05:59 Ceftriaxone Sodium 50 ml @ 100 mls/hr DAILY@09 IV 05/23/24 09:00 05/23/24 08:16 Sodium Chloride (Saline Lock Ns) 10 ml Q8HR IV 05/23/24 06:00 05/23/24 14:32 Acetaminophen/ Hydrocodone Bitart ([place] 5/325MG Tab) 1 tab Q4HP PRN PO MODERATE PAIN (4-6 PAIN SCALE) 05/22/24 22:15 05/23/24 14:46 Ondansetron HCl (Zofran) 4 mg Q4HP PRN IV NAUSEA / VOMITING 05/22/24 22:15 05/23/24 08:16 Docusate Sodium (Colace Capsule) 100 mg BIDPRN PRN PO FOR CONSTIPATION 05/22/24 22:15 05/23/24 14:45 Acetaminophen (Tylenol Tablet) 650 mg Q6HP PRN PO PAIN SCALE 1-3 OR TEMP>100.4 05/22/24 22:15 Nitroglycerin (Ntrostat Sublingual) 0.4 mg Q5MINP PRN SL FOR CHEST PAIN 05/22/24 23:45 Morphine Sulfate 2 mg Q30M PRN IV FOR CHEST PAIN 05/22/24 23:45 Ipratropium [place] (Atrovent Medneb) 0.5 mg Q6HPRN PRN NEB SHORTNESS OF BREATH 05/23/24 01:45 Albuterol (Ventolin Medneb) 2.5 mg Q6HPRN PRN NEB SHORTNESS OF BREATH 05/23/24 01:45 05/23/24 01:45 DC Levalbuterol HCl (Xopenex Medneb) 0.625 mg Q6HPRN NEB 05/23/24 06:00 Vital Signs Vital Signs Date Time Temp Pulse Resp B/P (MAP) Pulse Ox O2 Delivery O2 Flow Rate FiO2 05/23/24 19:40 96 Nasal Cannula* 3 32 05/23/24 17:00 99.0 89 22 146/77 (100) 99.0 Physical Exam Gen.: Patient lying in bed in no apparent distress. On supplemental oxygen. Head: Normocephalic, atraumatic. Eyes: EOMI/PERRLA. Ears: Normal hearing. Normal anatomy. Neck/trachea: Trachea midline, supple. Nose: Normal external anatomy. Mouth: Moist mucous membranes. Chest: Decreased air entry bilaterally. No wheezing or rhonchi. Cardiovascular: Positive S1, positive S2. Regular rate and rhythm. Abdomen: Positive bowel sounds in all 4 quadrants. Soft, non-tender, non- distended. : Deferred. Rectal: Deferred. Skin: Warm, dry. Intact. Extremities: 2+ radial pulses bilaterally. No lower extremity edema. Neuro: Awake, alert, oriented x3. No gross motor or sensory deficits. Cranial nerves II through XII intact. Gait not assessed. Labs/Diagnostic Data Labs Test 05/23/24 05:10 05/22/24 17:24 05/22/24 17:21 Range/Units White Blood Count 10.9 H 4.4-10.8 10^3/uL Red Blood Count 3.67 L 4.0-5.20 10^6/uL Hemoglobin 11.7 L 12.2-16.2 g/dL Hematocrit 34.9 L 36.0-46.0 % Mean Corpuscular Volume 95.1 80.0-100.0 fL Mean Corpuscular Hemoglobin 32.0 28.0-32.0 pg Mean Corpuscular Hemoglobin Concent 33.6 32.0-36.0 g/dL Red Cell Distribution Width 16.0 H 11.8-14.3 % Platelet Count 264 140-450 10^3/uL Mean Platelet Volume 8.7 6.9-10.8 fL Neutrophils (%) (Auto) 80.9 H 37.0-80.0 % Lymphocytes (%) (Auto) 10.5 10.0-50.0 % Monocytes (%) (Auto) 7.8 0.0-12.0 % Eosinophils (%) (Auto) 0.4 0.0-7.0 % Basophils (%) (Auto) 0.4 0.0-2.0 % Neutrophils # (Auto) 8.8 H 1.6-8.6 10 ^3/uL Lymphocytes # (Auto) 1.1 0.4-5.4 10 ^3/uL Monocytes # (Auto) 0.9 0-1.3 10 ^3/uL Eosinophils # (Auto) 0 0-0.8 10 ^3/uL Basophils # (Auto) 0 0-0.2 10 ^3/uL Nucleated Red Blood Cells 0.0 % Sodium Level 138 136-145 mmol/L Potassium Level 3.4 L 3.5-5.1 mmol/L Chloride Level 98 98-107 mmol/L Carbon Dioxide Level 32 H 20-31 mmol/L Anion Gap 8 5-15 Blood Urea Nitrogen 19 9-23 mg/dL Creatinine 0.90 0.550-1.02 mg/dL Glomerular Filtration Rate Calc 67 >90 mL/min BUN/Creatinine Ratio 21.1 H 10.0-20.0 Serum Glucose 104 74-106 mg/dL Calcium Level 10.7 H 8.7-10.4 mg/dL Magnesium Level 1.8 1.6-2.6 mg/dL Total Bilirubin 0.4 0.2-1.0 mg/dL Aspartate Amino Transferase (AST) 20 13-40 U/L Alanine Aminotransferase (ALT) 16 7-40 U/L Alkaline Phosphatase 90 46-116 U/L Troponin I High Sensitivity 65 *H </=34 ng/L Total Protein 6.4 5.7-8.2 g/dL Albumin 3.8 3.2-4.8 g/dL B-Type Natriuretic Peptide 423.72 0-100 pg/mL Thyroid Stimulating Hormone (TSH) 0.74 0.55-4.78 uIU/mL Urine Color Colorless Yellow Urine Clarity Clear Clear Urine pH 5.5 5.0-9.0 Urine Specific [place] 1.007 1.001-1.035 Urine Protein Negative Negative Urine Ketones Negative Negative Urine Blood Negative Negative /uL Urine Nitrite Negative Negative Urine Bilirubin Negative Negative Urine Urobilinogen Normal Negative mg/dL Urine Leukocyte Esterase 1+ Negative /uL Urine RBC <1 0 - 4 /hpf Urine WBC 6 0 - 5 /hpf Urine Squamous Epithelial Cells Few <5 /hpf Urine Bacteria None seen None Seen /hpf Urine Glucose Normal Normal mg/dL Assessment Impression: Acute on chronic hypoxic respiratory failure RML consolidation Atelectasis Congestive heart failure, acute on chronic Supraventricular tachycardia, s/p cardioversion Urinary tract infection Elevated troponin Pleural effusion Pulmonary edema Obesity Hx of nicotine dependence Plan: Supplemental oxygen Titrate to keep O2 sats above 92%. Patient is altered, received ketamine for cardioversion. CXR reviewed, revealed mild interstitial edema, trace bilateral pleural effusions. Patient underwent recent bronchoscopy on , 05/20/24. F/u pathology report from bronchoscopy and biopsies. Continue bronchodilators. IV antibiotics Incentive spirometry Diurese w/ Lasix as tolerated Monitor renal function. Monitor electrolytes. Supplement as necessary. Monitor ins and outs Follow up cardiology recommendations. Diet and lifestyle modifications for weight reduction Obesity - complicates all care DVT prophylaxis. Prognosis: Poor given patient's multiple co-morbidities. Rest of plan per hospitalist and other consultants. A total of 76 minutes of clinical care time was spent reviewing the patient record, examining the patient, making a diagnostic and therapeutic plan, discussing this plan with the medical personnel, following up on diagnostic studies and following the patient for clinical stability excluding any and all procedures. At least 50% of this time was spent in direct, [id number] contact. Thank you, Luis Dillard NP, for allowing me to participate in this patient's care. Further recommendations will depend on the patient's clinical course. Please do not hesitate to contact me if you have any questions or concerns. This medical document was created using an electronic medical record system with [employer] dictation system. Although these documentations are being carefully reviewed, there may still be some phonetic and typographical changes. The errors are purely typographical, due to imperfection on the software [employer], and do not reflect any compromise in the patient's medical care. Plan discussed with: Patient, Son, Other (LYNETTE Ramírez, RONALDO Dillard MD) SHARIF LUND MD May 23, 2024 21:14
[2024-05-24] VITALS (13 sets, daily range): BP systolic 104–155; BP diastolic 54–81; PULSE 62–132; RESP 17–24; TEMP 97.7–99.4; O2SAT 92–99
--- NOTE | 2024-05-24 14:51 | ECG ---
[facility] Test Date: 2024-05-22 Test Time: 19:39:47 Pat Name: BEN ASHBY Department: er Room: 0246T Gender: F Clinical Mental Health Counselor: brandy : 1950 Requested By: MARCELA ERICKSON Order Number: [id number] Reading MD: Miguel Lopez Measurements Intervals [place] Rate: 121 P: 0 MO: 0 QRS: 29 QRSD: 96 T: 95 QT: 341 QTc: 484 Interpretive Statements Atrial fibrillation Ventricular premature complex Low voltage, precordial leads Nonspecific T abnrm, anterolateral leads ST elevation, consider inferior injury Artifact in lead(s) I,II,aVR,aVL,aVF Electronically Signed On 05-25-2024 8:23:38 PST by Miguel Lopez Please click the below link to view image of tracing.
--- NOTE | 2024-05-24 16:42 | DVHPN2 ---
Subjective 74-year-old female known history of congestive heart. Hypertension distally presented to the hospital with chest pain palpitation found to have SVT status post adenosine without any factor eventually status post subjective cardioversion. Patient was currently denies any chest pain palpitations. Reviewed: Care Plan Changes from previous H/P or p: No Changes Eyes: No Pain, No Vision change, No Conjunctivae inflammation, No Eyelid inflammation, No Other, No Redness ENT: No Ear pain, No Ear discharge, No Nose pain, No Nose discharge, No Nose congestion, No Mouth pain, No Mouth swelling, No Throat pain, No Throat swelling, No Other Cardiovascular: No Chest Pain; Palpitations; No Orthopnea, No Paroxysmal Noc. Dyspnea, No Edema, No Lt Headedness, No Other Respiratory: No Cough, No Dry, No Shortness of breath, No SOB with excertion, No Wheezing, No Hemoptysis, No Pleuritic Pain, No Sputum, No Other Gastrointestinal: No Nausea, No Vomiting, No Abdominal Pain, No Diarrhea, No Constipation, No Melena, No Hematochezia, No Other Genitourinary: No Dysuria, No Frequency, No Incontinence, No Hematuria, No Retention, No Other Musculoskeletal: No other, No neck pain, No shoulder pain, No arm pain, No back pain, No hand pain, No leg pain, No foot pain Skin: No Rash, No Lesions, No Jaundice, No Bruising, No Other Objective Vitals Vital Signs Date Time Temp Pulse Resp B/P (MAP) Pulse Ox O2 Delivery O2 Flow Rate FiO2 05/24/24 13:00 97.8 76 20 130/62 (84) 96 97.8 05/24/24 08:30 Nasal Cannula* 3 32 Intake/Output Intake and Output 05/24/24 07:00 Intake Total 1190 ml Output Total 1225 ml Balance -35 ml Intake Oral 1140 ml IV Total 50 ml Output Urine Total 1225 ml Exam HEENT pupils are reactive Neck is supple CV is S1-S2 regular rate and rhythm Respiratory bilateral basal crackles GI posterior bowel sound Extremity trace edema [employer] no motor deficit Medications Current Medications Medications Dose Ordered Sig/Vashti Route Start Time Stop Time Status Last Admin Dose Admin Aspirin 81 mg DAILY PO 05/23/24 10:00 05/24/24 09:22 81 MG Famotidine 20 mg DAILY IV 05/23/24 10:00 05/24/24 09:22 20 MG Furosemide 20 mg DAILY IV 05/23/24 10:00 05/24/24 09:22 20 MG Metoprolol Tartrate 25 mg BID PO 05/23/24 10:00 05/24/24 09:21 25 MG Levothyroxine Sodium 150 mcg QAM@0600 PO 05/23/24 06:00 05/24/24 05:20 150 MCG Ceftriaxone Sodium 50 ml @ 100 mls/hr DAILY@09 IV 05/23/24 09:00 05/24/24 08:53 100 MLS/HR Sodium Chloride 10 ml Q8HR IV 05/23/24 06:00 05/24/24 09:23 10 ML Acetaminophen/ Hydrocodone Bitart 1 tab Q4HP PRN PO 05/22/24 22:15 05/24/24 08:53 1 TAB Ondansetron HCl 4 mg Q4HP PRN IV 05/22/24 22:15 05/23/24 22:45 4 MG Docusate Sodium 100 mg BIDPRN PRN PO 05/22/24 22:15 05/23/24 14:45 100 MG Acetaminophen 650 mg Q6HP PRN PO 05/22/24 22:15 Nitroglycerin 0.4 mg Q5MINP PRN SL 05/22/24 23:45 Morphine Sulfate 2 mg Q30M PRN IV 05/22/24 23:45 Ipratropium [place] 0.5 mg Q6HPRN PRN NEB 05/23/24 01:45 Levalbuterol HCl 0.625 mg Q6HPRN PRN NEB 05/24/24 10:30 Laboratory Results Laboratory Tests 05/23/24 05:10 Urinalysis Test 05/22/24 17:21 Urine Color Colorless (Yellow) Urine Clarity Clear (Clear) Urine pH 5.5 (5.0-9.0) Urine Specific [place] 1.007 (1.001-1.035) Urine Protein Negative (Negative) Urine Ketones Negative (Negative) Urine Blood Negative /uL (Negative) Urine Nitrite Negative (Negative) Urine Bilirubin Negative (Negative) Urine Urobilinogen Normal mg/dL (Negative) Urine Leukocyte Esterase 1+ /uL (Negative) Urine RBC <1 /hpf (0 - 4) Urine WBC 6 /hpf (0 - 5) Urine Squamous Epithelial Cells Few /hpf (<5) Urine Bacteria None seen /hpf (None Seen) Urine Glucose Normal mg/dL (Normal) Microbiology Microbiology Date/Time Source Procedure Growth Status 05/22/24 17:24 Voided Urine Urine Culture - Preliminary Resulted Assessment/Plan Assessment/Plan 74-year-old female who initially with a has been has been palpitations found to have 1. SVT status post cardioversion 2. Acute on chronic congestive heart failure with systolic dysfunction 3. Hypertension 4. Dyslipidemia 5. Morbid obesity class three 6. Elevated troponin suspect NSTEMI type 2 secondary to SVT and congestive heart failure exacerbation 7. Right middle lobe consolidation, continue antibiotics -continue IV diuresis, continue beta-ebony follow up Cardiology recommendation one continue antibiotics -physical therapy evaluation and treatment Plan discussed with: Patient Date of Service: May 24, 2024 Billing Provider: RUBENS ROBERTS MD Common Visit Codes: [id number] INP/OBS CARE(MOD) RUBENS ROBERTS MD May 24, 2024 16:42
--- NOTE | 2024-05-24 18:41 | DVHPN2 ---
Progress Note - Dictate Date Seen: May 24, 2024 Medical Necessity Reason Pt with a Central, PICC or Fol: Yes The following are medically ne: [place] Catheter Reason for aguillon catheter: Strict I&O Subjective Patient was seen and evaluated in follow up. Patient is complaining of palpitations. Denies any current chest pain. Echocardiogram shows an EF of 55%. Prelim urine culture is growing approximately 30,000 CFU/mL Mixed Gram Positive Anur[place] 3 [place] Types. vital signs Vital Sign Date Time Temp Pulse Resp B/P (MAP) Pulse Ox O2 Delivery O2 Flow Rate FiO2 05/24/24 17:47 97.7 81 155/78 (103) 94 97.7 05/24/24 13:00 20 05/24/24 08:30 Nasal Cannula* 3 32 Total Intake and Output 05/23/24 05/23/24 05/24/24 15:00 23:00 07:00 Intake Total 50 ml 240 ml 900 ml Output Total 650 ml 575 ml Balance 50 ml -410 ml 325 ml medications Current Medications Medications Dose Ordered Sig/Vashti Route Start Time Stop Time Status Last Admin Dose Admin Aspirin 81 mg DAILY PO 05/23/24 10:00 05/24/24 09:22 81 MG Famotidine 20 mg DAILY IV 05/23/24 10:00 05/24/24 09:22 20 MG Furosemide 20 mg DAILY IV 05/23/24 10:00 05/24/24 09:22 20 MG Metoprolol Tartrate 25 mg BID PO 05/23/24 10:00 05/24/24 09:21 25 MG Levothyroxine Sodium 150 mcg QAM@0600 PO 05/23/24 06:00 05/24/24 05:20 150 MCG Ceftriaxone Sodium 50 ml @ 100 mls/hr DAILY@09 IV 05/23/24 09:00 05/24/24 08:53 100 MLS/HR Sodium Chloride 10 ml Q8HR IV 05/23/24 06:00 05/24/24 09:23 10 ML Acetaminophen/ Hydrocodone Bitart 1 tab Q4HP PRN PO 05/22/24 22:15 05/24/24 08:53 1 TAB Ondansetron HCl 4 mg Q4HP PRN IV 05/22/24 22:15 05/23/24 22:45 4 MG Docusate Sodium 100 mg BIDPRN PRN PO 05/22/24 22:15 05/24/24 18:32 100 MG Acetaminophen 650 mg Q6HP PRN PO 05/22/24 22:15 Nitroglycerin 0.4 mg Q5MINP PRN SL 05/22/24 23:45 Morphine Sulfate 2 mg Q30M PRN IV 05/22/24 23:45 Ipratropium [place] 0.5 mg Q6HPRN PRN NEB 05/23/24 01:45 Levalbuterol HCl 0.625 mg Q6HPRN PRN NEB 05/24/24 10:30 objective GENERAL: Awake, alert, oriented. Morbidly obese. LUNGS: Clear. CARDIOVASCULAR: Heart sounds are good. ABDOMEN: Soft. EXT: +3 pitting edema. laboratory and microbiology Laboratory Tests 05/23/24 05:10 Test 05/23/24 05:10 Range/Units Serum Glucose 104 74-106 mg/dL Problem List Supraventricular tachycardia status post direct current cardioversion. NSTEMI type II secondary to above. Rule out structural heart disease. Hypertension. COPD. Hypothyroidism. Obesity. Assessment/Plan Continued all current supportive medical care. Morphine and [place] for pain management. Aspirin, Metoprolol. IV antibiotics as ordered. Diuretics with Lasix. Monitor and replete electrolytes as needed. Additional plan as per the hospital course. Plan discussed with: Patient LEATHA ROWLNAD MD May 24, 2024 18:41
[2024-05-24] MEDS: IPRATROPIUM BROM 0.5 MG/2.5ML INH SOL NEB PRN (20:44)
[2024-05-24] MEDS: LEVALBUTEROL HCL 1.25 MG/3 ML NEB NEB PRN (20:45)
[2024-05-24] MEDS: methylPREDNISolone SOD SUCC 40 MG/ML VL IV SCH (21:37)
[2024-05-24] MEDS: BUDESONIDE (INHALATION) 0.5 MG/2 ML NEB NEB SCH (22:00)
--- NOTE | 2024-05-24 22:43 | DVHPN2 ---
Progress Note - Dictate Date Seen: May 24, 2024 Medical Necessity Reason Pt with a Central, PICC or Fol: Yes The following are medically ne: Aguillon Catheter Reason for aguillon catheter: Strict I&O Subjective Patient seen and examined at bedside. Remains on supplemental oxygen Overnight events reviewed. vital signs Vital Sign Date Time Temp Pulse Resp B/P (MAP) Pulse Ox O2 Delivery O2 Flow Rate FiO2 05/24/24 21:28 83 129/81 05/24/24 20:55 24 99 05/24/24 20:45 Nasal Cannula 3.0 05/24/24 20:45 32 05/24/24 17:47 97.7 97.7 Total Intake and Output 05/23/24 05/23/24 05/24/24 15:00 23:00 07:00 Intake Total 50 ml 240 ml 900 ml Output Total 650 ml 575 ml Balance 50 ml -410 ml 325 ml medications Current Medications Medications Dose Ordered Sig/Vashti Route Start Time Stop Time Status Last Admin Dose Admin Aspirin 81 mg DAILY PO 05/23/24 10:00 05/24/24 09:22 81 MG Famotidine 20 mg DAILY IV 05/23/24 10:00 05/24/24 09:22 20 MG Furosemide 20 mg DAILY IV 05/23/24 10:00 05/24/24 09:22 20 MG Metoprolol Tartrate 25 mg BID PO 05/23/24 10:00 05/24/24 21:28 25 MG Levothyroxine Sodium 150 mcg QAM@0600 PO 05/23/24 06:00 05/24/24 05:20 150 MCG Ceftriaxone Sodium 50 ml @ 100 mls/hr DAILY@09 IV 05/23/24 09:00 05/24/24 08:53 100 MLS/HR Sodium Chloride 10 ml Q8HR IV 05/23/24 06:00 05/24/24 21:27 10 ML Acetaminophen/ Hydrocodone Bitart 1 tab Q4HP PRN PO 05/22/24 22:15 05/24/24 20:11 1 TAB Ondansetron HCl 4 mg Q4HP PRN IV 05/22/24 22:15 05/23/24 22:45 4 MG Docusate Sodium 100 mg BIDPRN PRN PO 05/22/24 22:15 05/24/24 18:32 100 MG Acetaminophen 650 mg Q6HP PRN PO 05/22/24 22:15 Nitroglycerin 0.4 mg Q5MINP PRN SL 05/22/24 23:45 Morphine Sulfate 2 mg Q30M PRN IV 05/22/24 23:45 Ipratropium [place] 0.5 mg Q6HPRN PRN NEB 05/23/24 01:45 05/24/24 20:44 0.5 MG Levalbuterol HCl 0.625 mg Q6HPRN PRN NEB 05/24/24 10:30 05/24/24 20:45 0.625 MG Patient Own Medication 300 mg BID PO 05/24/24 22:00 Methylprednisolone Sodium Succinate 40 mg Q8HR IV 05/24/24 22:00 05/24/24 21:37 40 MG Budesonide 0.5 mg BID NEB 05/24/24 22:00 objective Gen.: Patient lying in bed in no apparent distress. On supplemental oxygen. Head: Normocephalic, atraumatic. Eyes: EOMI/PERRLA. Ears: Normal hearing. Normal anatomy. Neck/trachea: Trachea midline, supple. Nose: Normal external anatomy. Mouth: Moist mucous membranes. Chest: Decreased air entry bilaterally. Wheezing present. No rhonchi. Cardiovascular: Positive S1, positive S2. Regular rate and rhythm. Abdomen: Positive bowel sounds in all 4 quadrants. Soft, non-tender, non- distended. : Deferred. Rectal: Deferred. Skin: Warm, dry. Intact. Extremities: 2+ radial pulses bilaterally. No lower extremity edema. Neuro: Awake, alert, oriented x3. No gross motor or sensory deficits. Cranial nerves II through XII intact. Gait not assessed. laboratory and microbiology Laboratory Tests 05/23/24 05:10 Test 05/23/24 05:10 Range/Units Serum Glucose 104 74-106 mg/dL Assessment/Plan Impression: Acute on chronic hypoxic respiratory failure RML consolidation Atelectasis Congestive heart failure, acute on chronic Supraventricular tachycardia, s/p cardioversion Urinary tract infection Elevated troponin Pleural effusion Pulmonary edema Obesity Hx of nicotine dependence Events: Remains on supplemental oxygen, 5 LPM NC Taper O2 as tolerated Increased O2 requirements. Continue bronchodilators/Pulmicort BID IV steroids due to wheezing. Continue IV antibiotics Incentive spirometry Resume Theophylline 300 mg ER q.12 hours Pain control Avoid oversedation Diurese to maintain euvolemia - on Lasix QD Monitor renal function. Follow up Cardiology recs Obtain CXR in the AM for interval changes Labs and imaging reviewed. Rest of plan as noted below. Plan: Supplemental oxygen Titrate to keep O2 sats above 92%. Patient altered, received ketamine for cardioversion on 05/22. CXR reviewed, revealed mild interstitial edema, trace bilateral pleural effusions. Patient underwent recent bronchoscopy on , 05/20/24. F/u pathology report from bronchoscopy and biopsies. Continue bronchodilators. IV antibiotics Incentive spirometry Maintain euvolemia Monitor renal function. Monitor electrolytes. Supplement as necessary. Monitor ins and outs Diet and lifestyle modifications for weight reduction Obesity - complicates all care DVT prophylaxis. Prognosis: Poor given patient's multiple co-morbidities. Rest of plan per hospitalist and other consultants. A total of 53 minutes of clinical care time was spent reviewing the patient record, examining the patient, making a diagnostic and therapeutic plan, discussing this plan with the medical personnel, following up on diagnostic studies and following the patient for clinical stability excluding any and all procedures. At least 50% of this time was spent in direct, [id number] contact. Thank you, Luis Dillard NP, for allowing me to participate in this patient's care. Further recommendations will depend on the patient's clinical course. Please do not hesitate to contact me if you have any questions or concerns. This medical document was created using an electronic medical record system with [employer] dictation system. Although these documentations are being carefully reviewed, there may still be some phonetic and typographical changes. The errors are purely typographical, due to imperfection on the software program, and do not reflect any compromise in the patient's medical care. Plan discussed with: Patient, Other (LYNETTE Oconnor) SHARIF LUND MD May 24, 2024 22:43
[2024-05-25] VITALS (10 sets, daily range): BP systolic 125–156; BP diastolic 77–99; PULSE 85–154; RESP 18–22; TEMP 36.8; O2SAT 95–99
--- NOTE | 2024-05-25 06:48 | DVH ---
CHEST RADIOGRAPH Indication: interval changes Technique: Single frontal view of the chest was obtained Comparison: XY CHEST PORTABLE on DOS: 05/22/24, XY CHEST XRAY 1 VIEW on DOS: 05/20/24 IMPRESSION: There is enlargement of the cardiac silhouette. Bibasilar airspace opacities with more wedge-shaped o pacity in the right lower lung have increased, possibly related to atelectasis of the right middle lo be. Pulmonary vascular congestion appear stable. No sizable effusion.
--- NOTE | 2024-05-25 13:47 | MEDREC ---
[facility] Intervention Section I [facility] Intervention: Review courses of therapy (PLEASE CONSIDER D/C ANTIBIOTIC(S) IN ABSENCE OF BACTERIAL INFECTION) MARY CARMONA PHARMACIST May 25, 2024 13:47
[2024-05-25] MEDS ORDERED: METH4PAK PO (16:48)
[2024-05-25] MEDS ORDERED: DOXY100C79 PO (16:48)
--- NOTE | 2024-05-25 16:51 | DVHDS2 ---
Discharge Summary Date of Admission May 22, 2024 at 23:39 Date of Discharge: May 25, 2024 Labs/Diagnostic Data: Laboratory Results Test 05/23/24 05:10 05/22/24 17:24 05/22/24 17:21 White Blood Count 10.9 10^3/uL (4.4-10.8) Red Blood Count 3.67 10^6/uL (4.0-5.20) Hemoglobin 11.7 g/dL (12.2-16.2) Hematocrit 34.9 % (36.0-46.0) Mean Corpuscular Volume 95.1 fL (80.0-100.0) Mean Corpuscular Hemoglobin 32.0 pg (28.0-32.0) Mean Corpuscular Hemoglobin Concent 33.6 g/dL (32.0-36.0) Red Cell Distribution Width 16.0 % (11.8-14.3) Platelet Count 264 10^3/uL (140-450) Mean Platelet Volume 8.7 fL (6.9-10.8) Neutrophils (%) (Auto) 80.9 % (37.0-80.0) Lymphocytes (%) (Auto) 10.5 % (10.0-50.0) Monocytes (%) (Auto) 7.8 % (0.0-12.0) Eosinophils (%) (Auto) 0.4 % (0.0-7.0) Basophils (%) (Auto) 0.4 % (0.0-2.0) Neutrophils # (Auto) 8.8 10 ^3/uL (1.6-8.6) Lymphocytes # (Auto) 1.1 10 ^3/uL (0.4-5.4) Monocytes # (Auto) 0.9 10 ^3/uL (0-1.3) Eosinophils # (Auto) 0 10 ^3/uL (0-0.8) Basophils # (Auto) 0 10 ^3/uL (0-0.2) Nucleated Red Blood Cells 0.0 % Sodium Level 138 mmol/L (136-145) Potassium Level 3.4 mmol/L (3.5-5.1) Chloride Level 98 mmol/L (98-107) Carbon Dioxide Level 32 mmol/L (20-31) Anion Gap 8 (5-15) Blood Urea Nitrogen 19 mg/dL (9-23) Creatinine 0.90 mg/dL (0.550-1.02) Glomerular Filtration Rate Calc 67 mL/min (>90) BUN/Creatinine Ratio 21.1 (10.0-20.0) Serum Glucose 104 mg/dL (74-106) Calcium Level 10.7 mg/dL (8.7-10.4) Magnesium Level 1.8 mg/dL (1.6-2.6) Total Bilirubin 0.4 mg/dL (0.2-1.0) Aspartate Amino Transferase (AST) 20 U/L (13-40) Alanine Aminotransferase (ALT) 16 U/L (7-40) Alkaline Phosphatase 90 U/L (46-116) Troponin I High Sensitivity 65 ng/L (</=34) Total Protein 6.4 g/dL (5.7-8.2) Albumin 3.8 g/dL (3.2-4.8) B-Type Natriuretic Peptide 423.72 pg/mL (0-100) Thyroid Stimulating Hormone (TSH) 0.74 uIU/mL (0.55-4.78) Urine Color Colorless (Yellow) Urine Clarity Clear (Clear) Urine pH 5.5 (5.0-9.0) Urine Specific [place] 1.007 (1.001-1.035) Urine Protein Negative (Negative) Urine Ketones Negative (Negative) Urine Blood Negative /uL (Negative) Urine Nitrite Negative (Negative) Urine Bilirubin Negative (Negative) Urine Urobilinogen Normal mg/dL (Negative) Urine Leukocyte Esterase 1+ /uL (Negative) Urine RBC <1 /hpf (0 - 4) Urine WBC 6 /hpf (0 - 5) Urine Squamous Epithelial Cells Few /hpf (<5) Urine Bacteria None seen /hpf (None Seen) Urine Glucose Normal mg/dL (Normal) Other Laboratory Tests 05/23/24 05:10 Brief Hx & Hospital Course: 74-year-old female who initially with a has been has been palpitations found to have SVT status post cardioversion in the ER. Patient was found to have acute on chronic congestive heart failure with systolic dysfunction. Patient was given IV diuresis, Cardiology was consulted. Patient also has a right middle lobe consolidation was given IV antibiotics. Patient being discharged in a stable condition. On the day of discharge patient's vitals remained stable physical examination no change. Condition at Discharge: Stable Final Diagnosis/Problems List 74-year-old female who initially with a has been has been palpitations found to have 1. SVT status post cardioversion 2. Acute on chronic congestive heart failure with systolic dysfunction 3. Hypertension 4. Dyslipidemia 5. Morbid obesity class three 6. Elevated troponin suspect NSTEMI type 2 secondary to SVT and congestive heart failure exacerbation 7. Right middle lobe consolidation, continue antibiotics Discharge Disposition: Home with [facility] Services [facility] Discharge Will this Physician continue t: No Discharge Instruct/Medications Diet: Cardiac 2g Na,low cholest Activity: No Restrictions, As Tolerated Follow Up/Referral: With the PCP in 1-2 weeks Follow up with the Dr. Covington in 1-2 weeks Follow up with Dr. Randy Lema in one week Medications: Resume home medication Doxycycline 100 mg p.o. b.i.d. for one week Medrol Dosepak as directed Discharge Statement: "Patient was advised to return to the ER or call 911 if any headaches, dizziness, shortness of breath, chest pain, abdominal pain, bleeding, fevers, or worsening of medical condition. Patient was counseled about treatment plan, medications, possible side effects, patientverbalized understanding. All questions were answered to the best of my ability. This discharge took greater then 30 minutes in planning, reviewing documentation, counseling the patient, and discussing with other team members." ASSESSMENT ASSESSMENT Assessment 74-year-old female who initially with a has been has been palpitations found to have 1. SVT status post cardioversion 2. Acute on chronic congestive heart failure with systolic dysfunction 3. Hypertension 4. Dyslipidemia 5. Morbid obesity class three 6. Elevated troponin suspect NSTEMI type 2 secondary to SVT and congestive heart failure exacerbation 7. Right middle lobe consolidation, continue antibiotics Date of Service: May 25, 2024 Billing Provider: RUBENS ROBERTS MD Common Visit Codes: NOT BILLABLE RUBENS ROBERTS MD May 25, 2024 16:51
--- NOTE | 2024-05-25 21:09 | DVHPN2 ---
Progress Note - Dictate Date Seen: May 25, 2024 Medical Necessity Reason Pt with a Central, PICC or Fol: Yes The following are medically ne: Aguillon Catheter Reason for aguillon catheter: Strict I&O Subjective Patient seen and examined at bedside. Remains on supplemental oxygen Overnight events reviewed. vital signs Vital Sign Date Time Temp Pulse Resp B/P (MAP) Pulse Ox O2 Delivery O2 Flow Rate FiO2 05/25/24 20:09 36.8 91 18 95 05/25/24 16:41 141/77 (98) 05/25/24 08:30 Nasal Cannula* 3 32 Total Intake and Output 05/24/24 05/24/24 05/25/24 15:00 23:00 07:00 Intake Total 50 ml 700 ml 300 ml Output Total 1800 ml 525 ml Balance 50 ml -1100 ml -225 ml medications Current Medications Medications Dose Ordered Sig/Vashti Route Start Time Stop Time Status Last Admin Dose Admin Aspirin 81 mg DAILY PO 05/23/24 10:00 05/25/24 10:16 81 MG Famotidine 20 mg DAILY IV 05/23/24 10:00 05/25/24 10:52 20 MG Furosemide 20 mg DAILY IV 05/23/24 10:00 05/25/24 10:16 20 MG Metoprolol Tartrate 25 mg BID PO 05/23/24 10:00 05/25/24 10:16 25 MG Levothyroxine Sodium 150 mcg QAM@0600 PO 05/23/24 06:00 05/25/24 05:42 150 MCG Ceftriaxone Sodium 50 ml @ 100 mls/hr DAILY@09 IV 05/23/24 09:00 05/25/24 08:35 100 MLS/HR Sodium Chloride 10 ml Q8HR IV 05/23/24 06:00 05/25/24 16:02 10 ML Acetaminophen/ Hydrocodone Bitart 1 tab Q4HP PRN PO 05/22/24 22:15 05/25/24 15:59 1 TAB Ondansetron HCl 4 mg Q4HP PRN IV 05/22/24 22:15 05/23/24 22:45 4 MG Docusate Sodium 100 mg BIDPRN PRN PO 05/22/24 22:15 05/24/24 18:32 100 MG Acetaminophen 650 mg Q6HP PRN PO 05/22/24 22:15 Nitroglycerin 0.4 mg Q5MINP PRN SL 05/22/24 23:45 Morphine Sulfate 2 mg Q30M PRN IV 05/22/24 23:45 Ipratropium [place] 0.5 mg Q6HPRN PRN NEB 05/23/24 01:45 05/24/24 20:44 0.5 MG Levalbuterol HCl 0.625 mg Q6HPRN PRN NEB 05/24/24 10:30 05/24/24 20:45 0.625 MG Patient Own Medication 300 mg BID PO 05/24/24 22:00 05/25/24 10:53 300 MG Methylprednisolone Sodium Succinate 40 mg Q8HR IV 05/24/24 22:00 05/25/24 16:01 40 MG Budesonide 0.5 mg BID NEB 05/24/24 22:00 05/25/24 07:04 0.5 MG objective Gen.: Patient lying in bed in no apparent distress. On supplemental oxygen. Head: Normocephalic, atraumatic. Eyes: EOMI/PERRLA. Ears: Normal hearing. Normal anatomy. Neck/trachea: Trachea midline, supple. Nose: Normal external anatomy. Mouth: Moist mucous membranes. Chest: Decreased air entry bilaterally. Wheezing present. No rhonchi. Cardiovascular: Positive S1, positive S2. Regular rate and rhythm. Abdomen: Positive bowel sounds in all 4 quadrants. Soft, non-tender, non- distended. : Deferred. Rectal: Deferred. Skin: Warm, dry. Intact. Extremities: 2+ radial pulses bilaterally. No lower extremity edema. Neuro: Awake, alert, oriented x3. No gross motor or sensory deficits. Cranial nerves II through XII intact. Gait not assessed. laboratory and microbiology Laboratory Tests 05/23/24 05:10 Test 05/23/24 05:10 Range/Units Serum Glucose 104 74-106 mg/dL Assessment/Plan Impression: Acute on chronic hypoxic respiratory failure RML consolidation Atelectasis Congestive heart failure, acute on chronic Supraventricular tachycardia, s/p cardioversion Urinary tract infection Elevated troponin Pleural effusion Pulmonary edema Obesity Hx of nicotine dependence Events: Remains on supplemental oxygen, 3 LPM NC Taper O2 as tolerated Improved O2 requirements. Continue bronchodilators/Pulmicort BID IV steroids due to wheezing. Continue IV antibiotics Incentive spirometry Pain control Avoid oversedation Diurese to maintain euvolemia - on Lasix QD Monitor renal function. Cardiology recs appreciated. CXR reviewed; shows enlargement of the cardiac silhouette. Bibasilar airspace opacities with more wedge-shaped opacity in the right lower lung have increased, possibly related to atelectasis of the right middle lobe. Pulmonary vascular congestion appears stable. No sizable effusion. Patient is stable for discharge from the pulmonary standpoint. Labs and imaging reviewed. Rest of plan as noted below. Plan: Supplemental oxygen Titrate to keep O2 sats above 92%. Patient altered, received ketamine for cardioversion on 05/22. CXR reviewed, revealed mild interstitial edema, trace bilateral pleural effusions. Patient underwent recent bronchoscopy on , 05/20/24. F/u pathology report from bronchoscopy and biopsies. Continue bronchodilators. IV antibiotics Incentive spirometry Maintain euvolemia Monitor renal function. Monitor electrolytes. Supplement as necessary. Monitor ins and outs Diet and lifestyle modifications for weight reduction Obesity - complicates all care DVT prophylaxis. Prognosis: Poor given patient's multiple co-morbidities. Rest of plan per hospitalist and other consultants. A total of 53 minutes of clinical care time was spent reviewing the patient record, examining the patient, making a diagnostic and therapeutic plan, discussing this plan with the medical personnel, following up on diagnostic studies and following the patient for clinical stability excluding any and all procedures. At least 50% of this time was spent in direct, [id number] contact. Thank you, Luis Dillard NP, for allowing me to participate in this patient's care. Further recommendations will depend on the patient's clinical course. Please do not hesitate to contact me if you have any questions or concerns. This medical document was created using an electronic medical record system with [employer] dictation system. Although these documentations are being carefully reviewed, there may still be some phonetic and typographical changes. The errors are purely typographical, due to imperfection on the software program, and do not reflect any compromise in the patient's medical care. Plan discussed with: Patient, Other (LYNETTE Oconnor) SHARIF LUND MD May 25, 2024 21:09
--- NOTE | 2024-05-25 23:02 | DVHPN2 ---
Progress Note - Dictate Date Seen: May 25, 2024 Medical Necessity Reason Pt with a Central, PICC or Fol: Yes The following are medically ne: Aguillon Catheter Reason for aguillon catheter: Strict I&O Subjective Patient was seen and evaluated in follow up. Patient has no new complaints at this time. Patient denies any cardiac symptoms. Patient is cardiac stable for discharge. vital signs Vital Sign Date Time Temp Pulse Resp B/P (MAP) Pulse Ox O2 Delivery O2 Flow Rate FiO2 05/25/24 20:09 36.8 91 18 95 05/25/24 16:41 141/77 (98) 05/25/24 08:30 Nasal Cannula* 3 32 Total Intake and Output 05/24/24 05/24/24 05/25/24 15:00 23:00 07:00 Intake Total 50 ml 700 ml 300 ml Output Total 1800 ml 525 ml Balance 50 ml -1100 ml -225 ml objective GENERAL: Awake, alert, oriented. Morbidly obese. LUNGS: Clear. CARDIOVASCULAR: Heart sounds are good. ABDOMEN: Soft. EXT: +3 pitting edema. laboratory and microbiology Laboratory Tests 05/23/24 05:10 Test 05/23/24 05:10 Range/Units Serum Glucose 104 74-106 mg/dL Problem List Supraventricular tachycardia status post direct current cardioversion. NSTEMI type II secondary to above. Rule out structural heart disease. Hypertension. COPD. Hypothyroidism. Obesity. Assessment/Plan Continued all current supportive medical care. Morphine and [place] for pain management. Aspirin, Metoprolol. IV antibiotics as ordered. Diuretics with Lasix. Monitor and replete electrolytes as needed. Additional plan as per the hospital course. Plan discussed with: Patient LEATHA ROWLAND MD May 25, 2024 23:01
--- NOTE | 2024-05-30 15:25 | ECG ---
[facility] Test Date: 2024-05-23 Test Time: 11:22:40 Pat Name: BEN ASHBY Department: Room: 0246T B Gender: F Client Support Coordinator: LYNETTE : 1950 Requested By: SARA DU Order Number: [id number] Reading MD: Ksenia Monge Measurements Intervals [place] Rate: 120 P: 34 [place]: 155 QRS: -9 QRSD: 90 T: 124 QT: 335 QTc: 474 Interpretive Statements Sinus tachycardia Supraventricular bigeminy Borderline repolarization abnormality Electronically Signed On 05-31-2024 9:08:27 PST by Ksenia Monge Please click the below link to view image of tracing.
--- NOTE | 2024-05-30 15:26 | ECG ---
[facility] Test Date: 2024-05-23 Test Time: 11:20:27 Pat Name: BEN ASHBY Department: Room: 0246T B Gender: F Community Assistant: LYNETTE : 1950 Requested By: SARA DU Order Number: [id number] Reading MD: Ksenia Monge Measurements Intervals [place] Rate: 113 P: -65 [place]: 105 QRS: -19 QRSD: 94 T: 117 QT: 307 QTc: 421 Interpretive Statements Sinus or ectopic atrial tachycardia Multiple premature complexes, vent & supraven Borderline left axis deviation Nonspecific repol abnormality, diffuse leads Electronically Signed On 05-31-2024 9:08:26 PST by Ksenia Monge Please click the below link to view image of tracing.
== END 2024-05-25 21:30 | disposition home health service (06) | DRG 280 ==
LOC: ER 16:52 → TELE 23:39 → TELE-E-ADS 05-23 03:14 → TELE-EAST 05-25 02:20
PROVIDERS: ADMIT Nurse Practitioner Family; ATTEND Internal Medicine
PROC: 5A2204Z Restoration of Cardiac Rhythm, Single (ICD-10-PCS; principal; 2024-05-22)
DX: I11.0 Hypertensive heart disease with heart failure (principal); I50.23 Acute on chronic systolic (congestive) heart failure; I21.A1 Myocardial infarction type 2; J96.21 Acute and chronic respiratory failure with hypoxia; I47.10 Supraventricular tachycardia, unspecified; J98.11 Atelectasis; N30.01 Acute cystitis with hematuria; E03.9 Hypothyroidism, unspecified; E66.01 Morbid (severe) obesity due to excess calories; G89.29 Other chronic pain; E78.5 Hyperlipidemia, unspecified; E87.6 Hypokalemia; J44.89 Other specified chronic obstructive pulmonary disease; Z96.653 Presence of artificial knee joint, bilateral; Z90.49 Acquired absence of other specified parts of digestive tract; Z87.891 Personal history of nicotine dependence; Z68.39 Body mass index [BMI] 39.0-39.9, adult
CPT/HCPCS: 36415; 71045; 80053; 81001; 83735; 83880; 84443; 84484; 85025; 87086; 93005; 93306; 94640; 97163; 99291; G0378; J0153; J2405; J3490